=== PATIENT | female | born 1990 ===

== ENCOUNTER 2020-01-10 12:19 | Outpatient (REF) | payer OTHER, SELFPAY | END 2020-01-10 12:20 | disposition home or self-care (01) | LOC: HO.LAB 12:19 | PROVIDERS: Visit Provider Internal Medicine | DX: Z20.828 Contact with and (suspected) exposure to other viral communicable diseases (principal) | CPT/HCPCS: 36415; 87635 ==

== ENCOUNTER 2020-01-21 16:40 | Emergency (ER) | payer OTHER, SELFPAY ==
[2020-01-21 17:49] VITALS: BP 134/71; PULSE 91; RESP 16; TEMP 37.1; O2SAT 100; BMI 24.2
--- NOTE | 2020-01-21 18:44 | ED.EAR ---
HPI - Ear Problem General Chief complaint: Ear Problems <LIGIA Lucio Last Filed: 01/21/20 18:49> Stated complaint: EARACHE <LIGIA Lucio Last Filed: 01/21/20 18:49> Time Seen by Provider: 01/21/20 18:44 <LIGIA Lucio Last Filed: 01/21/20 18:49> Source: patient <LIGIA Lucio Last Filed: 01/21/20 18:49> Mode of arrival: ambulatory <LIGIA Lucio Last Filed: 01/21/20 18:49> History of Present Illness HPI Narrative: 30-year-old female with no significant past medical history complaining of bilateral ear pain worse on the right x3 weeks. Denies fever, chills, hearing loss, drainage, sore throat, headache, cough <LIGIA Lucio Last Filed: 01/21/20 18:49> MD Complaint: ear pain <LIGIA Lucio Last Filed: 01/21/20 18:49> Location: bilateral <LIGIA Lucio Last Filed: 01/21/20 18:49> Related Data Home medications: Previous Rx's Medication Instructions Recorded amoxicillin-pot clavulanate 1 tab PO Q12H 7 Days #14 tab 01/21/20 [Augmentin] <LIGIA Lucio Last Filed: 01/21/20 18:49> Allergies/adverse reactions: Allergies Allergy/AdvReac Type Severity Reaction Status Date / Time No Known Allergies Allergy Verified 01/20/20 14:42 [No Known Allergies*] <LIGIA Lucio Last Filed: 01/21/20 18:49> Review of Systems Review of Systems: Constitutional: No Weight loss, No Fever, No Chills ENT/Mouth: + Ear Pain, No Nasal Congestion, No Sinus Pain, No Hoarseness, No sore throat, No Rhinorrhea, No Swallowing Difficulty Respiratory: No Cough Skin: No Skin Lesions, No rash <LIGIA Lucio Last Filed: 01/21/20 18:49> Yes all other systems are reviewed and are negative <LIGIA Lucio Last Filed: 01/21/20 18:49> PMFSH Past Medical History Attestation statement: The following information was validated with the patient. <LIGIA Lucio - Last Filed: 01/21/20 18:49> Medical History: Medical History (Updated 01/21/20 @ 18:45 by LIGIA Lucio) No known health problems <LIGIA Lucio - Last Filed: 01/21/20 18:49> Surgical History: Surgical History (Updated 01/20/20 @ 14:42 by ENOC Carter) No pertinent past surgical history <LIGIA Lucio - Last Filed: 01/21/20 18:49> Family History Family History: Family History (Updated 01/20/20 @ 14:43 by ENOC Carter) Father CVD (cardiovascular disease) Hypertension Mother Alive and well <LIGIA Lucio - Last Filed: 01/21/20 18:49> Social History Social History: Social History Alcohol intake: never Smoked in Last 30 Days: No Use of substances other than those prescribed or required for medical reasons: No Advance Directives: No Advance Directives Information Provided: Yes <LIGIA Lucio - Last Filed: 01/21/20 18:49> Physical Exam Vital Signs: Vital Signs: Vital Signs Temp Pulse Resp BP Pulse Ox 01/21/20 17:49 98.7 F 91 16 134/71 100 Body Mass Index 24.2 <LIGIA Lucio - Last Filed: 01/21/20 18:49> Vital Signs: Vital Signs Temp Pulse Resp BP Pulse Ox 01/21/20 17:49 98.7 F 91 16 134/71 100 Body Mass Index 24.2 <Errol Bui MD - Last Filed: 01/21/20 19:15> Const: General: cooperative and healthy appearing <LIGIA Lucio - Last Filed: 01/21/20 18:49> Orientation/consciousness: patient oriented x3 <LIGIA Lucio - Last Filed: 01/21/20 18:49> Limitations: no limitations <LIGIA Lucio - Last Filed: 01/21/20 18:49> HENMT: Head: Yes normal to inspection <LIGIA Lucio - Last Filed: 01/21/20 18:49> Ears: hearing grossly normal bilaterally, TM normal on the left, mastoids normal, no periauricular adenopathy, TM abnormal ( right) bulging and with fluid behind the TM and unable to visualize TM ( cleared with syringe) on the right <LIGIA Lucio - Last Filed: 01/21/20 18:49> General nose exam: Normal external nose present <LIGIA Lucio - Last Filed: 01/21/20 18:49> Face and sinus: Yes normal facial exam <LIGIA Lucio - Last Filed: 01/21/20 18:49> Mouth: Normal oral and palatal mucosa present <LIGIA Lucio - Last Filed: 01/21/20 18:49> Throat: Yes uvula midline <LIGIA Lucio - Last Filed: 01/21/20 18:49> Eyes: General: appearance normal, both eyes and all related structures <LIGIA Lucio - Last Filed: 01/21/20 18:49> EOM: EOMs intact bilaterally <LIGIA Lucio - Last Filed: 01/21/20 18:49> Neck: Neck: Yes normal visual inspection <LIGIA Lucio - Last Filed: 01/21/20 18:49> Skin: Rashes: no rashes <LIGIA Lucio - Last Filed: 01/21/20 18:49> Wounds: no wounds <LIGIA Lucio - Last Filed: 01/21/20 18:49> Neuro: General: patient oriented x3 <LIGIA Lucio - Last Filed: 01/21/20 18:49> Gait exam (Neuro): Normal gait present <LIGIA Lucio - Last Filed: 01/21/20 18:49> Extrem: General: Yes normal to inspection <LIGIA Lucio - Last Filed: 01/21/20 18:49> Course Course Course Narrative: I have reviewed the chart <Errol Bui MD - Last Filed: 01/21/20 19:15> MDM - Ear MDM Narrative Medical decision making narrative: right TM with cerumen impaction, cleared with water gun syringe. Right TM with fluid behind membrane/bulging consistent with otitis media <LIGIA Lucio - Last Filed: 01/21/20 18:49> Differential Diagnosis Differential diagnosis: Likely otitis media and cerumen impaction <LIGIA Lucio Last Filed: 01/21/20 18:49> Discharge Plan Discharge Clinical Impression: Otitis media <LIGIA Lucio Last Filed: 01/21/20 18:49> Patient Disposition: Home, Self-Care <LIGIA Lucio Last Filed: 01/21/20 18:49> Instructions: Ear Infection (ED) <LIGIA Lucio Last Filed: 01/21/20 18:49> Additional Instructions: you have an inner ear infection Augmentin is an antibiotic, take as prescribed Follow-up with her primary care doctor Take Tylenol and Motrin at home for pain If pain persists or worsens, you have fever, hearing loss, or drainage from the ear return to the ED <LIGIA Lucio Last Filed: 01/21/20 18:49> Prescriptions: New amoxicillin-pot clavulanate [Augmentin] 875-125 mg tablet 1 tab PO Q12H 7 Days Qty: 14 RF: 0 <LIGIA Lucio Last Filed: 01/21/20 18:49> Referrals: ED Physician,Generic [Physician] - 2 days ( your primary care doctor) <LIGIA Lucio Last Filed: 01/21/20 18:49> Interventions: ED Discharge Assessment Last Done: 01/21/20 19:05 <LIGIA Lucio Last Filed: 01/21/20 18:49> Discharge Date/Time: 01/21/20 18:55 <LIGIA Lucio Last Filed: 01/21/20 18:49>
== END 2020-01-21 18:55 | disposition home or self-care (01) ==
PROVIDERS: Emergency Provider Emergency Medicine; PCP Internal Medicine
DX: H66.93 Otitis media, unspecified, bilateral (principal); H61.23 Impacted cerumen, bilateral; H92.03 Otalgia, bilateral
CPT/HCPCS: 99283; 99284

== ENCOUNTER 2020-02-21 16:22 | Outpatient (REF) | payer OTHER, SELFPAY | END 2020-02-21 16:23 | disposition home or self-care (01) | LOC: HO.LAB 16:22 | PROVIDERS: Visit Provider Internal Medicine | DX: Z20.828 Contact with and (suspected) exposure to other viral communicable diseases (principal) | CPT/HCPCS: C9803; U0003 ==

== ENCOUNTER 2020-04-19 08:47 | Emergency (ER) | payer OTHER, SELFPAY ==
[2020-04-19 08:58] VITALS: BP 131/95; PULSE 117; RESP 18; TEMP 36.9; O2SAT 100; BMI 24.2
--- NOTE | 2020-04-19 09:11 | ED_ITS ---
HPI - Chest Pain General Chief Complaint: Chest Pain <Arthur Pittman NP - Last Filed: 04/19/20 11:03> Stated Complaint: upper back pain <Arthur Pittman NP - Last Filed: 04/19/20 11:03> Time Seen by Provider: 04/19/20 09:11 <Arthur Pittman NP - Last Filed: 04/19/20 11:03> Source: patient <Arthur Pittman NP - Last Filed: 04/19/20 11:03> Mode of arrival: ambulatory <Arthur Pittman NP - Last Filed: 04/19/20 11:03> Limitations: no limitations <ASHLEY Manley Last Filed: 04/19/20 11:03> History of Present Illness HPI narrative: This is otherwise healthy 30-year-old female who is a A0 youngest child is 4 years old otherwise she denies any significant past medical history and not on control who presents today with complaint of 4 days of pain on the right-sided chest and pain in the right-sided upper back for 4 days as well worsen with movement and palpation. She denies any cough or fever. Does also report mild sore throat going on for the past 6 days. No swelling or difficulty swallowing. No sick contacts. <Arthur Pittman NP - Last Filed: 04/19/20 11:03> Related Data Home Medications: Previous Rx's Medication Instructions Recorded amoxicillin-pot clavulanate 1 tab PO Q12H 7 Days #14 tab 01/21/20 [Augmentin] cyclobenzaprine 5 mg PO TID PRN #14 tab 04/19/20 ibuprofen 800 mg PO Q8H PRN #20 tab 04/19/20 <Arthur Pittman NP - Last Filed: 04/19/20 11:03> Allergies/Adverse Reactions: Allergies Allergy/AdvReac Type Severity Reaction Status Date / Time No Known Allergies Allergy Verified 01/20/20 14:42 [No Known Allergies*] <ASHLEY Manley Last Filed: 04/19/20 11:03> Review of Systems Review of Systems: Constitutional: No Weight loss, No Fever, No Chills, No Night Sweats, No Fatigue, No Malaise ENT/Mouth: No Hearing loss, No Ear Pain, No Nasal Congestion, No Sinus Pain, No Hoarseness, + sore throat, No Rhinorrhea, No Swallowing Difficulty Eyes: No Eye Pain, No Swelling, No Redness, No Foreign Body, No Discharge, No Vision Changes Cardiovascular: + Chest Pain, No SOB, No Dyspnea on Exertion, No Orthopnea, No Edema, No Palpitations Respiratory: No Cough, No Sputum, No Wheezing, No Smoke Exposure, No Dyspnea Gastrointestinal: No Nausea, No Vomiting, No Diarrhea, No Constipation, No abdom inal Pain, No Hematochezia, No Melena Genitourinary: no irregular bleeding, No Dysuria, No Urinary Frequency, No Hematuria, No Urinary Incontinence, No Urgency, No Flank Pain, No Urinary Flow Changes, No Hesitancy Musculoskeletal: No joint pain, No Myalgias, No Joint Swelling Skin: No Skin Lesions, No rash Neuro: No Weakness, No Numbness, No Paresthesias, No Loss of Consciousness, No Dizziness, No Headache Psych: No Social Issues Heme/Lymph: No Bruising, No Bleeding,No Lymphadenopathy Endocrine: No Polyuria, No Polydipsia, No Temperature Intolerance <Arthur Pittman NP - Last Filed: 04/19/20 11:03> Yes all other systems are reviewed and are negative <Arthur Pittman NP - Last Filed: 04/19/20 11:03> [facility] Past Medical History Medical History: Medical History (Updated 04/20/20 @ 00:01 by Kalin Ambrocio) No known health problems Physical exam <Arthur Pittman NP - Last Filed: 04/19/20 11:03> Surgical History: Surgical History No pertinent past surgical history <Arthur Pittman NP - Last Filed: 04/19/20 11:03> Family History Family History: Family History (Updated 01/20/20 @ 14:43 by Deborah Valenzuela Kim) Father CVD (cardiovascular disease) Hypertension Mother Alive and well <Arthur Pittman NP - Last Filed: 04/19/20 11:03> Social History Social History: Social History Alcohol intake: never Smoked in Last 30 Days: No Use of substances other than those prescribed or required for medical reasons: No Advance Directives: No Advance Directives Information Provided: Yes <Arthur Pittman NP - Last Filed: 04/19/20 11:03> Physical Exam Vital Signs: Vital Signs: Last Vital Signs Temp 98.4 F 04/19/20 08:58 Pulse 117 H 04/19/20 08:58 Resp 18 04/19/20 08:58 BP 131/95 H 04/19/20 08:58 Pulse Ox 100 04/19/20 08:58 Body Mass Index 24.2 Reviewed <Arthuraretha Pittman NP - Last Filed: 04/19/20 11:03> Vital Signs: Last Vital Signs Temp 98.4 F 04/19/20 08:58 Pulse 117 H 04/19/20 08:58 Resp 18 04/19/20 08:58 BP 131/95 H 04/19/20 08:58 Pulse Ox 100 04/19/20 08:58 Body Mass Index 24.2 <Errol Bui MD - Last Filed: 04/23/20 14:37> Const: General: cooperative and healthy appearing; No acute distress or intoxicated appearing <Arthuraretha Pittman NP - Last Filed: 04/19/20 11:03> Nutritional Appearance: average body habitus <Arthuraretha Pittman NP - Last Filed: 04/19/20 11:03> Orientation/consciousness: patient oriented x3 <Arthur Pittman NP - Last Filed: 04/19/20 11:03> HENMT: Head: Yes normal to inspection <Arthuraretha Pittman NP - Last Filed: 04/19/20 11:03> Ears: hearing grossly normal bilaterally <[facility] ASHLEY Pittman - Last Filed: 04/19/20 11:03> Eyes: General: appearance normal, both eyes and all related structures <Arthuraretha Pittman NP - Last Filed: 04/19/20 11:03> Visual Simmons: normal visual simmons by confrontation <[facility] ASHLEY Pittman - Last Filed: 04/19/20 11:03> Neck: Neck: Yes normal visual inspection, No positive Brudzinski's sign, No positive Kernig's sign and No tender <Arthuraretha Pittman NP - Last Filed: 04/19/20 11:03> Thyroid: Thyroid normal <[facility] ASHLEY Pittman - Last Filed: 04/19/20 11:03> Chest: Chest palpation & inspection: normal inspection of the chest, no crepitus and tenderness costochondral junction <[facility] Zain - Last Filed: 04/19/20 11:03> Resp: Effort & Inspection: normal respiratory effort <[facility] Zain - Last Filed: 04/19/20 11:03> Auscultation: clear to auscultation bilaterally <[facility] Pittman - Last Filed: 04/19/20 11:03> Cardio: Jugular venous distension: no JVD <[facility] Pittman - Last Filed: 04/19/20 11:03> Rate: regular rate <[facility] Pittman - Last Filed: 04/19/20 11:03> Rhythm: regular rhythm [facility] - Last Filed: 04/19/20 11:03> Heart sounds: S1 normal heart sound present and S2 normal heart sound present <[facility] Pittman - Last Filed: 04/19/20 11:03> GI: Inspection: Yes normal to inspection <[facility] Pittman - Last Filed: 04/19/20 11:03> Percussion: Yes normal to percussion <[facility] Pittman - Last Filed: 04/19/20 11:03> Auscultation: normal bowel sounds <[facility] Pittman - Last Filed: 04/19/20 11:03> : General: Yes no CVA tenderness <[facility] Pittman - Last Filed: 04/19/20 11:03> Back/Spine/Pelvis: Back: no CVA tenderness <[facility] Pittman - Last Filed: 04/19/20 11:03> Skin: General skin exam: no rashes or lesions noted <[facility] Pittman - Last Filed: 04/19/20 11:03> Neuro: General: patient oriented x3 <[facility] Pittman, - Last Filed: 04/19/20 11:03> Extrem: General: Yes normal to inspection <[facility] Pittman - Last Filed: 04/19/20 11:03> Course Course Course Narrative: Labs overall stable. D-dimer negative. Chemistries without significant abnormalities. High sensitivity troponin negative. COVID/strep negative. AP consistent with pain musculoskeletal in etiology and mild viral pharyngitis. Will be discharged home with supportive care, return follow-up instructions provided. <Arthur Pittman NP - Last Filed: 04/19/20 11:03> I have reviewed the chart <Errol Bui MD - Last Filed: 04/23/20 14:37> MDM - Chest Pain Differential Diagnosis Differential diagnosis: Likely atypical chest pain, costochondritis and chest pain; Unlikely fracture of rib, pneumothorax, stable angina, unstable angina pectoris, st elevation myocardial infarction and biliary colic <Arthur Pittman NP - Last Filed: 0 04/19/20 11:03> Differential diagnosis: Also considered pulmonary embolism, pharyngitis <Arthur Pittman NP - Last Filed: 04/19/20 11:03> Medical Records Data Attestation: I reviewed the patient's medical records. <Arthur Pittman NP - Last Filed: 04/19/20 11:03> Lab Data Attestation: I reviewed the patient's lab results. <Arthur Pittman NP - Last Filed: 04/19/20 11:03> Result diagrams: : 04/19/20 09:15 04/19/20 09:15 <Arthur Pittman NP - Last Filed: 04/19/20 11:03> Labs: Lab Results 04/19/20 04/19/20 04/19/20 Range/Units 09:15 09:15 09:15 WBC 6.6 (4.8-10.8) X10*3/uL RBC 4.80 (4.20-5.50) X10*6/uL Hgb 12.6 (12.0-16.0) g/dl Hct 39.1 (37-47) % MCV 81.5 (80-98) fL MCH 26.3 L (27.0-33.0) pg MCHC 32.2 (31.0-35.0) g/dl RDW 13.9 (11.0-16.0) % Plt Count 299 (160-400) X10*3/uL MPV 11.9 (9.4-12.3) fL Immature Gran % (Auto) 0.3 (0.0-0.4) % Neut % (Auto) 66.2 (45-73) % Lymph % (Auto) 25.8 (20-40) % [place] % (Auto) 6.5 (2-11) % Eos % (Auto) 0.9 (0-4) % Baso % (Auto) 0.3 (0-2) % Lymph # (Auto) 1.7 (1.2-4.9) X10*3/uL [place] # (Auto) 0.4 (0.1-1.2) X10*3/uL Eos # (Auto) 0.1 (0.0-0.4) X10*3/uL Baso # (Auto) 0.0 (0.0-0.2) X10*3/uL Abs Immat Gran (auto) 0.02 (0.00-0.03) X10*3/uL Absolute Neuts (auto) 4.4 (2.0-8.3) X10*3/uL Absolute Nucleated RBC 0.000 (0.0-0.012) X10*3/uL Nucleated RBC % (auto) 0.0 (0.0-0.2) /100WBC PT (10.8-13.0) SEC INR (0.9-1.1) APTT (24.1-38.0) SEC D-Dimer NG/ML Sodium 137 (135-145) mmol/L Potassium 4.2 (3.3-5.1) mmol/l Chloride 102 (96-108) mmol/L Carbon Dioxide 25 (22-29) mmol/L Anion Gap 14 (12-20) BUN 11 (9-16) mg/dL Creatinine 0.64 (0.5-1.4) mg/dL Estim Creat Clear Calc 95.9 Estimated GFR > 60 Random Glucose 93 (60-115) mg/dL Calcium 9.2 (8.4-10.2) mg/dL Total Bilirubin 0.5 (0.0-1.0) mg/dL AST 16 (5-31) U/L ALT 15 (0-31) U/L Alkaline Phosphatase 83 (39-117) U/L Troponin I High Sens (<3.5-17.0) ng/L Total Protein 8.0 (6.5-8.0) g/dL Albumin 4.5 (3.5-5.0) g/dL COVID-19 ([facility]) Negative (Negative) COVID-19 Clin Com See Note 04/19/20 04/19/20 Range/Units 09:16 09:16 WBC (4.8-10.8) X10*3/uL RBC (4.20-5.50) X10*6/uL Hgb (12.0-16.0) g/dl Hct (37-47) % MCV (80-98) fL MCH (27.0-33.0) pg MCHC (31.0-35.0) g/dl RDW (11.0-16.0) % Plt Count (160-400) X10*3/uL MPV (9.4-12.3) fL Immature Gran % (Auto) (0.0-0.4) % Neut % (Auto) (45-73) % Lymph % (Auto) (20-40) % [place] % (Auto) (2-11) % Eos % (Auto) (0-4) % Baso % (Auto) (0-2) % Lymph # (Auto) (1.2-4.9) X10*3/uL [place] # (Auto) (0.1-1.2) X10*3/uL Eos # (Auto) (0.0-0.4) X10*3/uL Baso # (Auto) (0.0-0.2) X10*3/uL Abs Immat Gran (auto) (0.00-0.03) X10*3/uL Absolute Neuts (auto) (2.0-8.3) X10*3/uL Absolute Nucleated RBC (0.0-0.012) X10*3/uL Nucleated RBC % (auto) (0.0-0.2) /100WBC PT 12.7 (10.8-13.0) SEC INR 1.1 (0.9-1.1) APTT 37.2 (24.1-38.0) SEC D-Dimer < 200 NG/ML Sodium (135-145) mmol/L Potassium (3.3-5.1) mmol/l Chloride (96-108) mmol/L Carbon Dioxide (22-29) mmol/L Anion Gap (12-20) BUN (9-16) mg/dL Creatinine (0.5-1.4) mg/dL Estim Creat Clear Calc Estimated GFR Random Glucose (60-115) mg/dL Calcium (8.4-10.2) mg/dL Total Bilirubin (0.0-1.0) mg/dL AST (5-31) U/L ALT (0-31) U/L Alkaline Phosphatase (39-117) U/L Troponin I High Sens < 3.5 (<3.5-17.0) ng/L Total Protein (6.5-8.0) g/dL Albumin (3.5-5.0) g/dL COVID-19 ([facility]) (Negative) COVID-19 Clin Com <Arthur Pittman NP - Last Filed: 04/19/20 11:03> Lab Results 04/19/20 04/19/20 04/19/20 Range/Units 09:15 09:15 09:15 WBC 6.6 (4.8-10.8) X10*3/uL RBC 4.80 (4.20-5.50) X10*6/uL Hgb 12.6 (12.0-16.0) g/dl Hct 39.1 (37-47) % MCV 81.5 (80-98) fL MCH 26.3 L (27.0-33.0) pg MCHC 32.2 (31.0-35.0) g/dl RDW 13.9 (11.0-16.0) % Plt Count 299 (160-400) X10*3/uL MPV 11.9 (9.4-12.3) fL Immature Gran % (Auto) 0.3 (0.0-0.4) % Neut % (Auto) 66.2 (45-73) % Lymph % (Auto) 25.8 (20-40) % [place] % (Auto) 6.5 (2-11) % Eos % (Auto) 0.9 (0-4) % Baso % (Auto) 0.3 (0-2) % Lymph # (Auto) 1.7 (1.2-4.9) X10*3/uL [place] # (Auto) 0.4 (0.1-1.2) X10*3/uL Eos # (Auto) 0.1 (0.0-0.4) X10*3/uL Baso # (Auto) 0.0 (0.0-0.2) X10*3/uL Abs Immat Gran (auto) 0.02 (0.00-0.03) X10*3/uL Absolute Neuts (auto) 4.4 (2.0-8.3) X10*3/uL Absolute Nucleated RBC 0.000 (0.0-0.012) X10*3/uL Nucleated RBC % (auto) 0.0 (0.0-0.2) /100WBC PT (10.8-13.0) SEC INR (0.9-1.1) APTT (24.1-38.0) SEC D-Dimer NG/ML Sodium 137 (135-145) mmol/L Potassium 4.2 (3.3-5.1) mmol/l Chloride 102 (96-108) mmol/L Carbon Dioxide 25 (22-29) mmol/L Anion Gap 14 (12-20) BUN 11 (9-16) mg/dL Creatinine 0.64 (0.5-1.4) mg/dL Estim Creat Clear Calc 95.9 Estimated GFR > 60 Random Glucose 93 (60-115) mg/dL Calcium 9.2 (8.4-10.2) mg/dL Total Bilirubin 0.5 (0.0-1.0) mg/dL AST 16 (5-31) U/L ALT 15 (0-31) U/L Alkaline Phosphatase 83 (39-117) U/L Troponin I High Sens (<3.5-17.0) ng/L Total Protein 8.0 (6.5-8.0) g/dL Albumin 4.5 (3.5-5.0) g/dL COVID-19 ([facility]) Negative (Negative) COVID-19 Clin Com See Note 04/19/20 04/19/20 Range/Units 09:16 09:16 WBC (4.8-10.8) X10*3/uL RBC (4.20-5.50) X10*6/uL Hgb (12.0-16.0) g/dl Hct (37-47) % MCV (80-98) fL MCH (27.0-33.0) pg MCHC (31.0-35.0) g/dl RDW (11.0-16.0) % Plt Count (160-400) X10*3/uL MPV (9.4-12.3) fL Immature Gran % (Auto) (0.0-0.4) % Neut % (Auto) (45-73) % Lymph % (Auto) (20-40) % [place] % (Auto) (2-11) % Eos % (Auto) (0-4) % Baso % (Auto) (0-2) % Lymph # (Auto) (1.2-4.9) X10*3/uL [place] # (Auto) (0.1-1.2) X10*3/uL Eos # (Auto) (0.0-0.4) X10*3/uL Baso # (Auto) (0.0-0.2) X10*3/uL Abs Immat Gran (auto) (0.00-0.03) X10*3/uL Absolute Neuts (auto) (2.0-8.3) X10*3/uL Absolute Nucleated RBC (0.0-0.012) X10*3/uL Nucleated RBC % (auto) (0.0-0.2) /100WBC PT 12.7 (10.8-13.0) SEC INR 1.1 (0.9-1.1) APTT 37.2 (24.1-38.0) SEC D-Dimer < 200 NG/ML Sodium (135-145) mmol/L Potassium (3.3-5.1) mmol/l Chloride (96-108) mmol/L Carbon Dioxide (22-29) mmol/L Anion Gap (12-20) BUN (9-16) mg/dL Creatinine (0.5-1.4) mg/dL Estim Creat Clear Calc Estimated GFR Random Glucose (60-115) mg/dL Calcium (8.4-10.2) mg/dL Total Bilirubin (0.0-1.0) mg/dL AST (5-31) U/L ALT (0-31) U/L Alkaline Phosphatase (39-117) U/L Troponin I High Sens < 3.5 (<3.5-17.0) ng/L Total Protein (6.5-8.0) g/dL Albumin (3.5-5.0) g/dL COVID-19 ([facility]) (Negative) COVID-19 Clin Com <Errol Bui MD - Last Filed: 04/23/20 14:37> Imaging Data Chest x-ray: Radiologist's impression: [id number] [place] [id number] XRay Report Signed Patient: Jakob Dale#: [id number] : 1990Acct:[id number] Age/Sex: 30 / FADM Date: 04/19/20 Loc: HO.ED Attending Dr: Ordering Physician: Arthur Pittman NP Date of Service: 04/19/20 Procedure(s): XR chest 1V Accession Number(s): [id number] cc: Arthur Pittman NP~ EXAMINATION: XR CHEST CLINICAL INFORMATION: Chest wall pain COMPARISON: August 20, 2017 TECHNIQUE: AP portable view of the chest was obtained. FINDINGS: No significant abnormality is noted involving the heart, lungs, mediastinum, bony thorax or soft tissues. XR/XR chest 1V IMPRESSION: No acute disease. Dictated By:LYNN PEÑALOZA MD Signed By:<Electronically signed by LYNN PEÑALOZA MD in OV>04/19/20 1005 DD/ 0913 TD/TT: [employer] Operator: LIBERTAD <Arthur Pittman NP - Last Filed: 04/19/20 11:03> ECG Data ECG #1: Interpretation: Normal sinus rhythm Rate 100 No ectopy No acute ST segment changes No previous ECGs available <Arthur Pittman NP - Last Filed: 04/19/20 11:03> Discharge Plan Discharge Clinical Impression: Costalchondritis, Acute viral pharyngitis <Arthur Pittman NP - Last Filed: 04/19/20 11:03> Patient Disposition: Home, Self-Care <Arthur Pittman NP - Last Filed: 04/19/20 11:03> Instructions: Pharyngitis (ED), Costochondritis (ED) <Arthur Pittman NP - Last Filed: 04/19/20 11:03> Additional Instructions: Your chest x-ray was negative Blood work was all within normal limits Your COVID test was negative Strep test was negative Warm compresses Gentle stretching Saltwater gargles Anti-inflammatory medication prescribed Muscle relaxants as prescribed No drinking alcohol or or driving while taking muscle relaxants Follow-up with her primary doctor as discussed Return if any concerns or worsening symptoms Thank you <Arthur Pittman NP - Last Filed: 04/19/20 11:03> Prescriptions: New ibuprofen 800 mg tablet 800 mg PO Q8H PRN (Reason: pain) Qty: 20 RF: 0 cyclobenzaprine 5 mg tablet 5 mg PO TID PRN (Reason: muscle spasm) Qty: 14 RF: 0 No Action amoxicillin-pot clavulanate [Augmentin] 875-125 mg tablet 1 tab PO Q12H 7 Days Qty: 14 RF: 0 <Arthur Pittman NP - Last Filed: 04/19/20 11:03> Referrals: Physician,None [Primary Care Provider] - 1 week <Arthur Pittman NP - Last Filed: 04/19/20 11:03> Interventions: ED Discharge Assessment Last Done: 04/19/20 11:14 <Arthur Pittman NP - Last Filed: 04/19/20 11:03> Discharge Date/Time: 04/19/20 11:16 <Arthur Pittman NP - Last Filed: 04/19/20 11:03>
--- NOTE | 2020-04-19 09:13 | ECG_ITS ---
Test Reason : CHEST DISCMFORT Blood Pressure : / mmHG Vent. Rate : 100 BPM Atrial Rate : 100 BPM P-R Int : 166 ms QRS Dur : 072 ms QT Int : 336 ms P-R-T Axes : 063 050 041 degrees QTc Int : 433 ms Normal sinus rhythm Normal ECG No previous ECGs available Referred By: Arthur Pittman Electronically Signed By:MARIALUISA SNELL MD
[2020-04-19 09:26] LABS: MANUAL DIFF FLAG NO
[2020-04-19] MEDS: 0.9 % Sodium Chloride 1,000 ML 999 ML IV (09:26)
[2020-04-19 09:29] LABS: Basophils Percent Auto 0.3 % (0-2); Eosinophils Absolute Auto 0.1 X10*3/uL (0.0-0.4); Eosinophils Percent Auto 0.9 % (0-4); Hematocrit 39.1 % (37-47); Hemoglobin 12.6 g/dl (12.0-16.0); Imm Gran Abs Auto 0.02 X10*3/uL (0.00-0.03); Imm Gran Pct Auto 0.3 % (0.0-0.4); Lymphocytes Absolute Auto 1.7 X10*3/uL (1.2-4.9); Lymphocytes Percent Auto 25.8 % (20-40); Mean Corpuscular HGB Conc 32.2 g/dl (31.0-35.0); Mean Corpuscular Hemoglobin 26.3 pg (27.0-33.0); Mean Corpuscular Volume 81.5 fL (80-98); Mean Platelet Volume 11.9 fL (9.4-12.3); Monocytes Absolute Auto 0.4 X10*3/uL (0.1-1.2); Monocytes Percent Auto 6.5 % (2-11); Neutrophils Absolute Auto 4.4 X10*3/uL (2.0-8.3); Neutrophils Percent Auto 66.2 % (45-73); Platelet Count 299 X10*3/uL (160-400); Red Cell Distribution Width 13.9 % (11.0-16.0); White Blood Count 6.6 X10*3/uL (4.8-10.8)
[2020-04-19 09:47] LABS: INTERNATIONAL NORM RATIO 1.1 (0.9-1.1); Prothrombin Time 12.7 SEC (10.8-13.0)
[2020-04-19 09:49] LABS: Partial Thromboplastin Time 37.2 SEC (24.1-38.0)
[2020-04-19 09:50] LABS: Alanine Aminotransferase 15 U/L (0-31); Albumin Level 4.5 g/dL (3.5-5.0); Alkaline Phosphatase 83 U/L (39-117); Anion Gap 14 (12-20); Aspartate Amino Transferase 16 U/L (5-31); Bilirubin Total 0.5 mg/dL (0.0-1.0); Blood Urea Nitrogen 11 mg/dL (9-16); Calcium 9.2 mg/dL (8.4-10.2); Carbon Dioxide 25 mmol/L (22-29); Chloride 102 mmol/L (96-108); Creatinine Clr Calc Pharmacy 95.9; Estimated Glomerular Filt Rate > 60; Glucose Random 93 mg/dL (60-115); Potassium 4.2 mmol/l (3.3-5.1); Sodium 137 mmol/L (135-145)
[2020-04-19 09:51] LABS: D Dimer < 200 NG/ML
[2020-04-19 09:54] LABS: Troponin-I High Sensitivity < 3.5 ng/L (<3.5-17.0)
[2020-04-19 10:03] LABS: COVID-19 Test Negative (Negative)
--- NOTE | 2020-04-19 11:13 | PC.NURSE ---
CLEARED FOR DC AFTER REEVAL BY PROVIDER
== END 2020-04-19 11:16 | disposition home or self-care (01) ==
PROVIDERS: Nurse Practitioner Primary Care; Emergency Provider Emergency Medicine
DX: M94.0 Chondrocostal junction syndrome [Tietze] (principal); J02.9 Acute pharyngitis, unspecified; Z20.822 Contact with and (suspected) exposure to COVID-19
CPT/HCPCS: 36415; 71045; 80053; 84484; 85025; 85379; 85610; 85730; 87071; 87147; 87635; 87880; 93005; 96360; 99284

== ENCOUNTER 2020-05-01 12:44 | Outpatient (REF) | payer OTHER, SELFPAY ==
[2020-05-02 14:17] LABS: C. trachomatis RNA TMA NOT DETECTED (NOT DETECTED); N. gonorrhoeae RNA TMA NOT DETECTED (NOT DETECTED)
== END 2020-05-01 12:45 | disposition home or self-care (01) ==
LOC: HO.LAB 12:44
PROVIDERS: Visit Provider Advanced Practice Midwife
DX: Z01.419 Encounter for gynecological examination (general) (routine) without abnormal findings (principal)
CPT/HCPCS: 36415; 87491; 87591

== ENCOUNTER 2020-07-25 14:46 | Outpatient (REF) | payer OTHER, SELFPAY ==
--- NOTE | ~2020-07-25 | XR_ITS ---
EXAMINATION: XR KNEE, LEFT CLINICAL INFORMATION: Left knee pain. COMPARISON: None TECHNIQUE: AP, lateral, and sunrise views of the left knee. FINDINGS: Bones and soft tissues are normal. No fracture or joint effusion. Alignment is anatomic. Joint spaces are well maintained. No abnormal soft tissue calcification. XR/XR knee LT 3V IMPRESSION: Unremarkable examination.
== END 2020-07-25 14:47 | disposition home or self-care (01) ==
LOC: HO.XRAY 14:46
PROVIDERS: PCP Internal Medicine; Visit Provider Student in an Organized Health Care Education/Training Program
DX: M25.562 Pain in left knee (principal); R68.84 Jaw pain; H04.129 Dry eye syndrome of unspecified lacrimal gland; R68.2 Dry mouth, unspecified; G89.29 Other chronic pain; Z79.899 Other long term (current) drug therapy
CPT/HCPCS: 73562; 99212

== ENCOUNTER 2020-11-16 13:59 | Outpatient (REF) | payer OTHER, SELFPAY | END 2020-11-16 14:00 | disposition home or self-care (01) | LOC: HO.HMGCLDS 13:59 | PROVIDERS: PCP Internal Medicine; Visit Provider Internal Medicine | DX: Z20.822 Contact with and (suspected) exposure to COVID-19 (principal) | CPT/HCPCS: C9803; U0003; U0005 ==

== ENCOUNTER 2021-08-03 14:42 | Outpatient (REF) | payer OTHER, SELFPAY ==
[2021-08-03 18:32] LABS: CT PCR NOT DETECTED (Not Detect.); NG PCR NOT DETECTED (Not Detect.)
[2021-08-09 11:56] LABS: HPV mRNA E6/E7 rflx Not Detected (Not Detected)
== END 2021-08-03 14:43 | disposition home or self-care (01) ==
LOC: HO.LAB 14:42
PROVIDERS: PCP Internal Medicine; Visit Provider Advanced Practice Midwife
DX: Z01.411 Encounter for gynecological examination (general) (routine) with abnormal findings (principal); Z11.51 Encounter for screening for human papillomavirus (HPV); Z20.2 Contact with and (suspected) exposure to infections with a predominantly sexual mode of transmission; N92.0 Excessive and frequent menstruation with regular cycle; N92.6 Irregular menstruation, unspecified
CPT/HCPCS: 87491; 87591; 87624; 88142

== ENCOUNTER 2021-08-27 13:23 | Outpatient (REF) | payer OTHER, SELFPAY ==
--- NOTE | ~2021-08-27 | US_ITS ---
EXAMINATION: US PELVIS CLINICAL INFORMATION: Irregular menses and hirsutism; the last menstrual period is uncertain. COMPARISON: None TECHNIQUE: Ultrasound of the pelvis is performed using both transabdominal and transvaginal transducers along with Doppler. Transvaginal imaging is performed due to inadequate visualization transabdominally. FINDINGS: Uterus: The uterus is anteverted and measures 10.4 x 5.1 x 6.0 cm. The double wall endometrial thickness is 1.2 mm. The uterus is smooth in contour and has normal myometrial echogenicity. No visible fibroid. Adnexa: Both ovaries are visualized. There is normal color flow to the adnexa. There is no ovarian torsion. There is no pelvic ascites or fluid collection. Right ovary measures 3.8 x 2.4 x 2.2 cm, for a volume of 10.5 mL.The right ovary contains a 1.3 x 1.1 x 1.3 cm simple cyst. Left ovary measures 3.7 x 1.4 x 2.0 cm, for a volume of 5.4 mL. No adnexal mass is seen. US/US pelvic and transvaginal IMPRESSION: 1. A benign-appearing 1.3 cm simple right ovarian cyst is seen. No ultrasound follow-up is recommended. 2. The examination is otherwise unremarkable.
== END 2021-08-27 13:24 | disposition home or self-care (01) ==
LOC: HO.US 13:23
PROVIDERS: Visit Provider Advanced Practice Midwife
DX: N92.6 Irregular menstruation, unspecified (principal); L68.0 Hirsutism
CPT/HCPCS: 76830; 76856

== ENCOUNTER 2021-11-23 06:40 | Outpatient (REF) | payer OTHER, SELFPAY ==
[2021-11-23 06:46] LABS: MANUAL DIFF FLAG NO
[2021-11-23 07:17] LABS: Basophils Percent Auto 0.6 % (0-2); Eosinophils Absolute Auto 0.1 X10*3/uL (0.0-0.4); Eosinophils Percent Auto 1.5 % (0-4); Hematocrit 37.2 % (37.0-47.0); Hemoglobin 11.9 g/dl (12.0-16.0); Imm Gran Abs Auto 0.02 X10*3/uL (0.00-0.03); Imm Gran Pct Auto 0.3 % (0.0-0.4); Lymphocytes Absolute Auto 2.6 X10*3/uL (1.2-4.9); Lymphocytes Percent Auto 37.8 % (20-40); Mean Corpuscular Hemoglobin 26.4 pg (27.0-33.0); Mean Corpuscular Volume 82.5 fL (80.0-98.0); Mean Platelet Volume 12.1 fL (9.4-12.3); Monocytes Absolute Auto 0.5 X10*3/uL (0.1-1.2); Monocytes Percent Auto 7.9 % (2-11); Neutrophils Absolute Auto 3.5 x10*3/uL (2.0-8.3); Neutrophils Percent Auto 51.9 % (45-73); Platelet Count 265 X10*3/uL (160-400); Red Blood Count 4.51 X10*6/uL (4.20-5.50); Red Cell Distribution Width 13.7 % (11.0-16.0); White Blood Count 6.7 X10*3/uL (4.8-10.8)
[2021-11-23 07:38] LABS: Alanine Aminotransferase 13 U/L (0-31); Albumin Level 4.1 g/dL (3.5-5.0); Alkaline Phosphatase 82 U/L (39-117); Anion Gap 12 (12-20); Aspartate Amino Transferase 14 U/L (5-31); Bilirubin Total 0.3 mg/dL (0.0-1.0); Blood Urea Nitrogen 11 mg/dL (9-16); C Reactive Protein 0.39 mg/dL (< or = 0.50); Calcium 9.3 mg/dL (8.4-10.2); Carbon Dioxide 25 mmol/L (22-29); Chloride 105 mmol/L (96-108); Cholesterol 157 mg/dL; Estimated Glomerular Filt Rate > 60; Glucose Random 90 mg/dL (60-115); HDL Cholesterol 46 mg/dL; LDL Cholesterol Calculated 92 mg/dl; Potassium 4.3 mmol/L (3.3-5.1); Sodium 138 mmol/L (135-145); Total Protein 7.2 g/dL (6.5-8.0); Triglycerides 96 mg/dL
[2021-11-23 07:55] LABS: Erythrocyte Sedimentation Rate 21 MM/HR (0-20)
[2021-11-23 07:59] LABS: Vitamin D 25-OH Total 27.9 ng/mL (>30)
[2021-11-23 09:23] LABS: Appearance Urine Hazy; Color Urine Yellow; Glucose Urine UA Negative (Negative); Leukocyte Esterase Urine Negative (Negative); Nitrite Urine Negative (Negative); Specific Gravity - Urine >= 1.030 (1.005-1.025); Urine Blood Negative (Negative); Urine Ketones Negative (Negative); Urine Protein Negative (Neg-Trace)
[2021-11-23 09:31] LABS: Bacteria Urine Trace (None Seen)
[2021-11-23 09:32] LABS: Hyaline Casts Urine 0-2 /LPF (0-2); RBC Urine 0-2 /HPF (0-2); WBC Urine 0-5 /HPF (0-5)
== END 2021-11-23 06:41 | disposition home or self-care (01) ==
LOC: HO.LAB 06:40
PROVIDERS: PCP Internal Medicine; Visit Provider Internal Medicine
DX: K59.00 Constipation, unspecified (principal); E78.00 Pure hypercholesterolemia, unspecified
CPT/HCPCS: 36415; 80053; 80061; 81001; 82306; 85025; 85652; 86140

== ENCOUNTER 2022-04-25 12:52 | Emergency (ER) | payer OTHER, SELFPAY ==
--- NOTE | ~2022-04-25 | XR_ITS ---
EXAMINATION: XR CHEST CLINICAL INFORMATION: Cough/SOB and chest pain COMPARISON: Chest x-ray 04/19/2020 TECHNIQUE: 2 views of the chest were obtained. FINDINGS: No significant abnormality is noted involving the heart, lungs, mediastinum, bony thorax or soft tissues. XR/XR chest 2V IMPRESSION: Unremarkable chest examination.
[2022-04-25 13:07] VITALS: BP 149/91; PULSE 92; RESP 17; TEMP 36.6; O2SAT 98; BMI 24.2
--- NOTE | 2022-04-25 13:07 | ED.GENADULT ---
HPI - General Adult General Chief complaint: Upper Respiratory Symptoms <LIGIA Rivera - Last Filed: 04/25/22 13:33> Stated complaint: CP, cough, headache <LIGIA Rivera - Last Filed: 04/25/22 13:33> Time Seen by Provider: 04/25/22 15:24 <LIGIA Rivera - Last Filed: 04/25/22 13:33> History of Present Illness HPI narrative: patient complains of main complaint of a cough with intermittent sputum sometimes green or yellow over the last 4 weeks as well as some stuffy nose and nasal congestion worst in the morning and there is some shortness of breath in the mornings but otherwise no other shortness of breath no chest pain no palpitations no fainting no feeling faint no stiff neck no difficulty swallowing no sore throat no chest pain no abdominal pain no nausea vomiting or diarrhea no dysuria and no rash <LIGIA Piedra - Last Filed: 04/27/22 10:24> Related Data Home medications: Home Medications Medication Instructions Recorded Confirmed multivitamin (Daily Multi-Vitamin 1 tab PO DAILY 05/01/20 03/15/22 tablet) Previous Rx's Medication Instructions Recorded doxycycline hyclate 100 mg tablet 100 mg PO BID #20 tabs 03/15/22 azithromycin 250 mg tablet See Rx Instructions PO .COMPLEX #6 04/25/22 (Zithromax Z-Van) tabs <LIGIA Rivera - Last Filed: 04/25/22 13:33> Allergies/adverse reactions: Allergies Allergy/AdvReac Type Severity Reaction Status Date / Time No Known Allergies Allergy Verified 03/15/22 16:01 [No Known Allergies*] <LIGIA Rivera - Last Filed: 04/25/22 13:33> [facility] Past Medical History Source: nursing notes reviewed <LIGIA Piedra - Last Filed: 04/27/22 10:24> Medical History: Medical History Allergic rhinitis Anemia Dry mouth Dryness of eye Heavy menses Jaw clicking Pituitary adenoma Vitamin D deficiency Xerostomia <LIGIA Rivera Last Filed: 04/25/22 13:33> Surgical History: Surgical History No pertinent past surgical history <LIGIA Rivera - Last Filed: 04/25/22 13:33> Family History Family History: Family History Father CVD (cardiovascular disease) Hypertension Mother Alive and well Maternal Aunt Breast cancer <LIGIA Rivera - Last Filed: 04/25/22 13:33> Social History Social History: Social History Housing: House Alcohol intake: never Patient Tobacco Use Status: Never used Tobacco Second Hand Smoke Exposure: No Advance Directives: No Current occupational status: employed Gender identity: Female Cognitive needs: No Hearing needs: No Vision needs: No <LIGIA Rivera Last Filed: 04/25/22 13:33> Physical Exam ED Vital Signs: Vital Signs - 24 hr 04/25/22 13:07 04/25/22 14:12 Temperature 98 F 98.2 F Pulse Rate 92 88 Respiratory Rate 17 16 Blood Pressure 149/91 H 124/84 Pulse Oximetry 98 100 Oxygen Delivery Method Room Air Room Air BMI result Body Mass Index 24.2 <LIGIA Rivera - Last Filed: 04/25/22 13:33> Vital Signs - 24 hr 04/25/22 13:07 04/25/22 14:12 Temperature 98 F 98.2 F Pulse Rate 92 88 Respiratory Rate 17 16 Blood Pressure 149/91 H 124/84 Pulse Oximetry 98 100 Oxygen Delivery Method Room Air Room Air BMI result Body Mass Index 24.2 <LIGIA Piedra - Last Filed: 04/27/22 10:24> General appearance is no acute distress Eyes anicteric no pallor no redness no discharge The nose no sinus tenderness The pharynx is clear without redness swelling or exudate, mucous membranes moist Chest is clear with full symmetric equal breath sounds no adventitious sounds Heart no murmur Abdomen nontender Extremities no edema no calf tenderness or swelling Skin no rashes <LIGIA Piedra - Last Filed: 04/27/22 10:24> Course Course Course Narrative: VIKAS-13:10PM - 32yoF presenting to the ER with complaints of a cough for weeks where it is intermittently associated with chest congestion and she is having pain to her chest midsternal when she is coughing otherwise she does not have chest pain. Reports associated shortness of breath. Denies any fevers, chills, dizziness, dyspnea on exertion orthopnea, leg swelling, recent travel or sick contacts or others with similar symptoms or any other symptoms complaints or concerns. Plan: Labs, EKG, chest x-ray and COVID/RSV/flu swab ordered. Patient will be sent back to the waiting room to evaluated in the ED. <LIGIA Rivera - Last Filed: 04/25/22 13:33> RME-13:10PM - 32yoF presenting to the ER with complaints of a cough for weeks where it is intermittently associated with chest congestion and she is having pain to her chest midsternal when she is coughing otherwise she does not have chest pain. Reports associated shortness of breath. Denies any fevers, chills, dizziness, dyspnea on exertion orthopnea, leg swelling, recent travel or sick contacts or others with similar symptoms or any other symptoms complaints or concerns. Plan: Labs, EKG, chest x-ray and COVID/RSV/flu swab ordered. Patient will be sent back to the waiting room to evaluated in the ED. Patient with a persistent cough for 4 weeks as well as some shortness of breath only in the morning associated with nasal congestion had a negative workup chemistry including a troponin was negative CBC showed hemoglobin hematocrit 11.7/35.8, which is similar to prior Serology was negative for COVID and flu EKG was done initially with incorrect limb leads so was repeated, EKG showed normal sinus rhythm with a rate of 86, NC interval and QRS duration were normal, QT was normal, there were no acute ST or ischemic changes Chest x-ray was normal, no pneumonia Well-appearing patient, breathing easily, ambulating easily, with a persistent cough for 1 month with no other concerning vital signs or exam findings was discharged with prescription for Zithromax for bronchitis <LIGIA Piedra - Last Filed: 04/27/22 10:24> Medical Decision Making Lab Data Result Diagrams: 04/25/22 13:59 04/25/22 13:59 <LIGIA Rivera - Last Filed: 04/25/22 13:33> Labs: Lab Results 01/19/23 01/19/23 01/19/23 Range/Units 13:59 13:59 13:59 WBC 7.4 (4.8-10.8) X10*3/uL RBC 4.47 (4.20-5.50) X10*6/uL Hgb 11.7 L (12.0-16.0) g/dl Hct 35.8 L (37.0-47.0) % MCV 80.1 (80.0-98.0) fL MCH 26.2 L (27.0-33.0) pg MCHC 32.7 (31.0-35.0) g/dl RDW 14.0 (11.0-16.0) % Plt Count 293 (160-400) X10*3/uL MPV 11.2 (9.4-12.3) fL Immature Gran % (Auto) 0.1 (0.0-0.4) % Neut % (Auto) 51.5 (45-73) % Lymph % (Auto) 39.9 (20-40) % Morton % (Auto) 6.2 (2-11) % Eos % (Auto) 1.6 (0-4) % Baso % (Auto) 0.7 (0-2) % Lymph # (Auto) 3.0 (1.2-4.9) X10*3/uL Morton # (Auto) 0.5 (0.1-1.2) X10*3/uL Eos # (Auto) 0.1 (0.0-0.4) X10*3/uL Baso # (Auto) 0.1 (0.0-0.2) X10*3/uL Abs Immat Gran (auto) 0.01 (0.00-0.03) X10*3/uL Absolute Neuts (auto) 3.8 (2.0-8.3) x10*3/uL Absolute Nucleated RBC 0.000 (0.0-0.012) X10*3/uL Nucleated RBC % (auto) 0.0 (0.0-0.2) /100WBC PT 10.9 (10.0-13.1) SEC INR 1.0 (0.9-1.1) Sodium 138 (135-145) mmol/L Potassium 3.9 (3.3-5.1) mmol/L Chloride 104 (96-108) mmol/L Carbon Dioxide 27 (22-29) mmol/L Anion Gap 11 L (12-20) BUN 12 (9-16) mg/dL Creatinine 0.63 (0.5-1.4) mg/dL Estim Creat Clear Calc 95.6 Estimated GFR > 60 Random Glucose 88 (60-115) mg/dL Calcium 9.6 (8.4-10.2) mg/dL Magnesium 2.0 (1.6-2.6) mg/dL Total Bilirubin 0.2 (0.0-1.0) mg/dL AST 17 (5-31) U/L ALT 16 (0-31) U/L Alkaline Phosphatase 95 (39-117) U/L Troponin I High Sens (<3.5-17.0) ng/L Total Protein 7.6 (6.5-8.0) g/dL Albumin 4.3 (3.5-5.0) g/dL Beta HCG, Quant < 2 mIU/mL Influenza Type A (PCR) (Negative) Influenza Type B (PCR) (Negative) RSV RNA Qual (PCR) (Negative) SARS-CoV-2 RNA (RT-PCR) (Negative) 04/25/22 04/25/22 Range/Units 13:59 13:59 WBC (4.8-10.8) X10*3/uL RBC (4.20-5.50) X10*6/uL Hgb (12.0-16.0) g/dl Hct (37.0-47.0) % MCV (80.0-98.0) fL MCH (27.0-33.0) pg MCHC (31.0-35.0) g/dl RDW (11.0-16.0) % Plt Count (160-400) X10*3/uL MPV (9.4-12.3) fL Immature Gran % (Auto) (0.0-0.4) % Neut % (Auto) (45-73) % Lymph % (Auto) (20-40) % Morton % (Auto) (2-11) % Eos % (Auto) (0-4) % Baso % (Auto) (0-2) % Lymph # (Auto) (1.2-4.9) X10*3/uL Morton # (Auto) (0.1-1.2) X10*3/uL Eos # (Auto) (0.0-0.4) X10*3/uL Baso # (Auto) (0.0-0.2) X10*3/uL Abs Immat Gran (auto) (0.00-0.03) X10*3/uL Absolute Neuts (auto) (2.0-8.3) x10*3/uL Absolute Nucleated RBC (0.0-0.012) X10*3/uL Nucleated RBC % (auto) (0.0-0.2) /100WBC PT (10.0-13.1) SEC INR (0.9-1.1) Sodium (135-145) mmol/L Potassium (3.3-5.1) mmol/L Chloride (96-108) mmol/L Carbon Dioxide (22-29) mmol/L Anion Gap (12-20) BUN (9-16) mg/dL Creatinine (0.5-1.4) mg/dL Estim Creat Clear Calc Estimated GFR Random Glucose (60-115) mg/dL Calcium (8.4-10.2) mg/dL Magnesium (1.6-2.6) mg/dL Total Bilirubin (0.0-1.0) mg/dL AST (5-31) U/L ALT (0-31) U/L Alkaline Phosphatase (39-117) U/L Troponin I High Sens < 3.5 (<3.5-17.0) ng/L Total Protein (6.5-8.0) g/dL Albumin (3.5-5.0) g/dL Beta HCG, Quant mIU/mL Influenza Type A (PCR) NEGATIVE (Negative) Influenza Type B (PCR) NEGATIVE (Negative) RSV RNA Qual (PCR) NEGATIVE (Negative) SARS-CoV-2 RNA (RT-PCR) NEGATIVE (Negative) <LIGIA Rivera - Last Filed: 04/25/22 13:33> Lab Results 04/25/22 04/25/22 04/25/22 Range/Units 13:59 13:59 13:59 WBC 7.4 (4.8-10.8) X10*3/uL RBC 4.47 (4.20-5.50) X10*6/uL Hgb 11.7 L (12.0-16.0) g/dl Hct 35.8 L (37.0-47.0) % MCV 80.1 (80.0-98.0) fL MCH 26.2 L (27.0-33.0) pg MCHC 32.7 (31.0-35.0) g/dl RDW 14.0 (11.0-16.0) % Plt Count 293 (160-400) X10*3/uL MPV 11.2 (9.4-12.3) fL Immature Gran % (Auto) 0.1 (0.0-0.4) % Neut % (Auto) 51.5 (45-73) % Lymph % (Auto) 39.9 (20-40) % Morton % (Auto) 6.2 (2-11) % Eos % (Auto) 1.6 (0-4) % Baso % (Auto) 0.7 (0-2) % Lymph # (Auto) 3.0 (1.2-4.9) X10*3/uL Morton # (Auto) 0.5 (0.1-1.2) X10*3/uL Eos # (Auto) 0.1 (0.0-0.4) X10*3/uL Baso # (Auto) 0.1 (0.0-0.2) X10*3/uL Abs Immat Gran (auto) 0.01 (0.00-0.03) X10*3/uL Absolute Neuts (auto) 3.8 (2.0-8.3) x10*3/uL Absolute Nucleated RBC 0.000 (0.0-0.012) X10*3/uL Nucleated RBC % (auto) 0.0 (0.0-0.2) /100WBC PT 10.9 (10.0-13.1) SEC INR 1.0 (0.9-1.1) Sodium 138 (135-145) mmol/L Potassium 3.9 (3.3-5.1) mmol/L Chloride 104 (96-108) mmol/L Carbon Dioxide 27 (22-29) mmol/L Anion Gap 11 L (12-20) BUN 12 (9-16) mg/dL Creatinine 0.63 (0.5-1.4) mg/dL Estim Creat Clear Calc 95.6 Estimated GFR > 60 Random Glucose 88 (60-115) mg/dL Calcium 9.6 (8.4-10.2) mg/dL Magnesium 2.0 (1.6-2.6) mg/dL Total Bilirubin 0.2 (0.0-1.0) mg/dL AST 17 (5-31) U/L ALT 16 (0-31) U/L Alkaline Phosphatase 95 (39-117) U/L Troponin I High Sens (<3.5-17.0) ng/L Total Protein 7.6 (6.5-8.0) g/dL Albumin 4.3 (3.5-5.0) g/dL Beta HCG, Quant < 2 mIU/mL Influenza Type A (PCR) (Negative) Influenza Type B (PCR) (Negative) RSV RNA Qual (PCR) (Negative) SARS-CoV-2 RNA (RT-PCR) (Negative) 04/25/22 04/25/22 Range/Units 13:59 13:59 WBC (4.8-10.8) X10*3/uL RBC (4.20-5.50) X10*6/uL Hgb (12.0-16.0) g/dl Hct (37.0-47.0) % MCV (80.0-98.0) fL MCH (27.0-33.0) pg MCHC (31.0-35.0) g/dl RDW (11.0-16.0) % Plt Count (160-400) X10*3/uL MPV (9.4-12.3) fL Immature Gran % (Auto) (0.0-0.4) % Neut % (Auto) (45-73) % Lymph % (Auto) (20-40) % Morton % (Auto) (2-11) % Eos % (Auto) (0-4) % Baso % (Auto) (0-2) % Lymph # (Auto) (1.2-4.9) X10*3/uL Morton # (Auto) (0.1-1.2) X10*3/uL Eos # (Auto) (0.0-0.4) X10*3/uL Baso # (Auto) (0.0-0.2) X10*3/uL Abs Immat Gran (auto) (0.00-0.03) X10*3/uL Absolute Neuts (auto) (2.0-8.3) x10*3/uL Absolute Nucleated RBC (0.0-0.012) X10*3/uL Nucleated RBC % (auto) (0.0-0.2) /100WBC PT (10.0-13.1) SEC INR (0.9-1.1) Sodium (135-145) mmol/L Potassium (3.3-5.1) mmol/L Chloride (96-108) mmol/L Carbon Dioxide (22-29) mmol/L Anion Gap (12-20) BUN (9-16) mg/dL Creatinine (0.5-1.4) mg/dL Estim Creat Clear Calc Estimated GFR Random Glucose (60-115) mg/dL Calcium (8.4-10.2) mg/dL Magnesium (1.6-2.6) mg/dL Total Bilirubin (0.0-1.0) mg/dL AST (5-31) U/L ALT (0-31) U/L Alkaline Phosphatase (39-117) U/L Troponin I High Sens < 3.5 (<3.5-17.0) ng/L Total Protein (6.5-8.0) g/dL Albumin (3.5-5.0) g/dL Beta HCG, Quant mIU/mL Influenza Type A (PCR) NEGATIVE (Negative) Influenza Type B (PCR) NEGATIVE (Negative) RSV RNA Qual (PCR) NEGATIVE (Negative) SARS-CoV-2 RNA (RT-PCR) NEGATIVE (Negative) <LIGIA Piedra - Last Filed: 04/27/22 10:24> Discharge Plan Discharge Clinical Impression: Bronchitis <LIGIA Rivera - Last Filed: 04/25/22 13:33> Patient Disposition: Home, Self-Care <LIGIA Rivera - Last Filed: 04/25/22 13:33> Additional Instructions: workup today did not show any worrisome findings in blood test EKG or chest x-ray Testing for flu and COVID were negative Your exam and vital signs were normal As you have had a cough for a month we perscribed Zithromax antibiotic for bronchitis Return to the ER any time any worse condition or concerns If needed for nasal congestion you could try Afrin spray available [id number] for several days <LIGIA Rivera - Last Filed: 04/25/22 13:33> Prescriptions: New azithromycin [Zithromax Z-Van] 250 mg tablet See Rx Instructions .ROUTE .COMPLEX Qty: 6 0RF Rx Instructions: For 250 mg dose pack: take 500 mg today (day 1), then 250 mg for 4 days (days 2-5) No Action doxycycline hyclate 100 mg tablet 100 mg PO BID Qty: 20 0RF multivitamin [Daily Multi-Vitamin] Tablet 1 tab PO DAILY <LIGIA Rivera - Last Filed: 04/25/22 13:33> Stand Alone Forms: Work/School Release <LIGIA Rivera - Last Filed: 04/25/22 13:33> Discharge Date/Time: 04/25/22 16:59 <LIGIA Rivera - Last Filed: 04/25/22 13:33>
--- NOTE | 2022-04-25 13:09 | ECG_ITS ---
Test Reason : SHORTNESS OF BREATH Blood Pressure : / mmHG Vent. Rate : 087 BPM Atrial Rate : 087 BPM P-R Int : 164 ms QRS Dur : 076 ms QT Int : 352 ms P-R-T Axes : 118 134 129 degrees QTc Int : 423 ms Suspect limb lead reversal, interpretation assumes no reversal Normal sinus rhythm Lateral infarct , age undetermined Abnormal ECG When compared with ECG of 19-APR-2020 09:18, QRS axis Shifted right Lateral infarct is now Present T wave inversion now evident in Lateral leads Referred By: Sabrina King Electronically Signed By:
[2022-04-25 14:04] LABS: MANUAL DIFF FLAG NO
[2022-04-25 14:07] LABS: Basophils Absolute Auto 0.1 X10*3/uL (0.0-0.2); Basophils Percent Auto 0.7 % (0-2); Eosinophils Absolute Auto 0.1 X10*3/uL (0.0-0.4); Eosinophils Percent Auto 1.6 % (0-4); Hematocrit 35.8 % (37.0-47.0); Hemoglobin 11.7 g/dl (12.0-16.0); Imm Gran Abs Auto 0.01 X10*3/uL (0.00-0.03); Imm Gran Pct Auto 0.1 % (0.0-0.4); Lymphocytes Percent Auto 39.9 % (20-40); Mean Corpuscular HGB Conc 32.7 g/dl (31.0-35.0); Mean Corpuscular Hemoglobin 26.2 pg (27.0-33.0); Mean Corpuscular Volume 80.1 fL (80.0-98.0); Mean Platelet Volume 11.2 fL (9.4-12.3); Monocytes Absolute Auto 0.5 X10*3/uL (0.1-1.2); Monocytes Percent Auto 6.2 % (2-11); Neutrophils Absolute Auto 3.8 x10*3/uL (2.0-8.3); Neutrophils Percent Auto 51.5 % (45-73); Platelet Count 293 X10*3/uL (160-400); Red Blood Count 4.47 X10*6/uL (4.20-5.50); White Blood Count 7.4 X10*3/uL (4.8-10.8)
[2022-04-25 14:12] VITALS: BP 124/84; PULSE 88; RESP 16; TEMP 36.8; O2SAT 100
[2022-04-25 14:31] LABS: Prothrombin Time 10.9 SEC (10.0-13.1)
[2022-04-25 14:34] LABS: Alanine Aminotransferase 16 U/L (0-31); Albumin Level 4.3 g/dL (3.5-5.0); Alkaline Phosphatase 95 U/L (39-117); Anion Gap 11 (12-20); Aspartate Amino Transferase 17 U/L (5-31); Bilirubin Total 0.2 mg/dL (0.0-1.0); Blood Urea Nitrogen 12 mg/dL (9-16); Calcium 9.6 mg/dL (8.4-10.2); Carbon Dioxide 27 mmol/L (22-29); Chloride 104 mmol/L (96-108); Creatinine Clr Calc Pharmacy 95.6; Estimated Glomerular Filt Rate > 60; Glucose Random 88 mg/dL (60-115); Potassium 3.9 mmol/L (3.3-5.1); Sodium 138 mmol/L (135-145); Total Protein 7.6 g/dL (6.5-8.0)
[2022-04-25 14:35] LABS: Troponin-I High Sensitivity < 3.5 ng/L (<3.5-17.0)
[2022-04-25 14:36] LABS: HCG Quantitative < 2 mIU/mL
[2022-04-25 14:52] LABS: Influenza A PCR NEGATIVE (Negative); Influenza B PCR NEGATIVE (Negative); Resp Syncy Virus RNA Qual PCR NEGATIVE (Negative); SARS COV2 PCR INHOUSE NEGATIVE (Negative)
--- NOTE | 2022-04-25 15:28 | ECG_ITS ---
Test Reason : CHEST PAIN Blood Pressure : / mmHG Vent. Rate : 086 BPM Atrial Rate : 086 BPM P-R Int : 188 ms QRS Dur : 078 ms QT Int : 360 ms P-R-T Axes : 059 032 046 degrees QTc Int : 430 ms Normal sinus rhythm Normal ECG When compared with ECG of 25-APR-2022 13:47, No significant change was found Referred By: Frank Guevara Electronically Signed By:MARIALUISA SNELL MD
== END 2022-04-25 16:59 | disposition home or self-care (01) ==
PROVIDERS: Physician Assistant Medical; Emergency Provider Emergency Medicine Emergency Medical Services; PCP Internal Medicine
DX: J40 Bronchitis, not specified as acute or chronic (principal); R07.89 Other chest pain; Z20.822 Contact with and (suspected) exposure to COVID-19; Z20.828 Contact with and (suspected) exposure to other viral communicable diseases; Z79.899 Other long term (current) drug therapy
CPT/HCPCS: 0241U; 71046; 80053; 83735; 84484; 84702; 85025; 85610; 93005; 99283; 99284

== ENCOUNTER 2023-01-23 13:12 | Emergency (ER) | payer OTHER, SELFPAY ==
[2023-01-23 14:45] VITALS: BP 165/90; PULSE 100; RESP 18; TEMP 36.3; O2SAT 100; BMI 24.2
--- NOTE | 2023-01-23 14:45 | ED_ITS ---
HPI - General Adult General Chief complaint: General Medical Stated complaint: l sided facial pain Time Seen by Provider: 01/23/23 20:05 Source: patient Mode of arrival: ambulatory History of Present Illness HPI narrative: 33-year-old female who presents with onset of left eye pain earlier today in associated tingling on the left side of her body that she describes is a little bit of cramping and denies any recent illnesses, fevers, chills, travel, tick exposure, falls. Patient reports that she has had blurred vision in both eyes but at this time denies any visual changes. She has not been to an eye doctor and states that her primary complaint is the left eye. Related Data Home Medications Medication Instructions Recorded Confirmed multivitamin (Daily Multi-Vitamin 1 tab PO DAILY 05/01/20 03/15/22 tablet) Previous Rx's Medication Instructions Recorded doxycycline hyclate 100 mg tablet 100 mg PO BID #20 tabs 03/15/22 azithromycin 250 mg tablet See Rx Instructions PO .COMPLEX #6 04/25/22 (Zithromax Z-Van) tabs Allergies Allergy/AdvReac Type Severity Reaction Status Date / Time No Known Allergies Allergy Verified 01/23/23 14:50 [No Known Allergies*] Review of Systems 2 Review of Systems: Pertinent positives and negatives as stated in [facility] Past Medical History Source: nursing notes reviewed Medical History Allergic rhinitis Anemia Dry mouth Dryness of eye Heavy menses Jaw clicking Pituitary adenoma Vitamin D deficiency Xerostomia Surgical History No pertinent past surgical history Family History Family History Father CVD (cardiovascular disease) Hypertension Mother Alive and well Maternal Aunt Breast cancer Social History Social History Housing: House Alcohol intake: never Patient Tobacco Use Status: Never used Tobacco Smoked in Last 30 Days: No Second Hand Smoke Exposure: No Use of substances other than those prescribed or required for medical reasons: No Advance Directives: No Advance Directives Information Provided: No Current occupational status: employed Gender identity: Female Cognitive needs: No Hearing needs: No Vision needs: No Physical Exam ED Vital Signs: Vital Signs - 24 hr 01/23/23 14:45 01/23/23 19:08 01/23/23 20:47 Temperature 97.4 F 98.3 F Pulse Rate 100 88 77 Respiratory Rate 18 18 16 Blood Pressure 165/90 H 144/87 H 129/88 Pulse Oximetry 100 100 100 Oxygen Delivery Method Room Air Room Air Room Air 01/23/23 20:49 01/23/23 20:49 01/23/23 20:51 Temperature Pulse Rate 80 75 84 Respiratory Rate Blood Pressure 129/88 129/88 128/85 Pulse Oximetry Oxygen Delivery Method BMI result Body Mass Index 24.2 VITAL SIGNS: Reviewed. GENERAL: Well developed, well nourished, in no acute distress. HEAD: Normocephalic/atraumatic EYES: PERRLA, EOMI EARS: Ext canals without abnormality, TMs non-bulging and non-erythematous NOSE: Nares patent bilateral OROPHARYNX: no oral lesions noted, posterior pharynx clear and non-erythematous without noted tonsillar enlargement/erythema/exudates NECK: Supple, no adenopathy LUNGS: Normal breath sounds. No adventitious sounds or accessory muscle use. SpO2<100> CARDIOVASCULAR: Regular rate and rhythm without noted murmurs ABDOMEN: Soft, non-tender, non-distended with bowel sounds. MUSCULOSKELETAL: No tenderness, deformities, or effusions noted on gross inspection. EXTREMITIES: No cyanosis, clubbing or edema. SKIN: Inspection of the skin reveals no rashes NEUROLOGIC: Alert and oriented x 4. Strength and sensation to light touch were grossly intact x 4, no facial asymmetry, no pronator drift, cranial nerves 2-12 are grossly intact Course Course Course Narrative: RME: 33yo F w/no PMHx c/o L eye/facial pain & L side of body pain/tingling and cramping intermittently x few weeks, worsening today. +blurry vision bilaterally. Admits to feeling lightheaded today at work No focal deficits, church secretary intact, ambulating w/steady gait EKG, Labs, UA ordered Full HPI, ROS and PE to be performed by primary ED provider. Medical Decision Making Medical Decision Making MDM Narrative: 33-year-old female with history and clinical presentation suggestive of possible nonmedical paresthesias, electrolyte abnormalities/infection but no clinical suspicion for TMJ/herpes zoster/tick related illness. I did review all previous documentation which included a referral to a slab lifting engineer/steam meter reader. I have no concerns for central abnormalities. Visual exam demonstrated EOMI without gaze palsies pupillary reflex brisk and visual acuity exam demonstrates 20/25 vision in both eyes and each eye by itself. No concerns for acute angle glaucoma. On review of all investigations hematologic indices do not demonstrate any leukocytosis, anemia, thrombocytopenia and ESR although mildly elevated demonstrating an inflammatory response appears to be unchanged from 2021 and is not consistent with a giant cell arteritis etiology although this is not consistent with clinical exam either. Coagulation studies are within normal limits. Chemistry indices are grossly within normal limits and there is no demonstrated GUI or electrolyte/liver enzyme abnormalities, high sensitivity troponin is undetectable and CRP is within normal limits. Urinalysis is negative for UTI or hematuria. On review of prior [facility] laboratory results the antibodies appear to be undetectable. Viral testing today is negative for COVID-19 and influenza. Urine test is negative. I discussed all results with the patient at bedside and strongly recommended that she follow-up with an mine equipment design engineer for an in depth eye exam and patient has a follow-up appointment with her primary care provider on February 05. Differential Diagnosis Differential Diagnoses: The differential diagnosis associated with the presentation includes Please see the discussion above Admission/Observation Consideration of admission/observation: Escalation of care including admission/observation considered Please see the discussion above Lab Data MDM Lab Attestation statement: I reviewed the patient's lab results. Please see the discussion above 01/23/23 15:17 01/23/23 15:17 Labs: Lab Results 01/23/23 Range/Units 15:17 WBC 10.7 (4.8-10.8) X10*3/uL RBC 4.74 (4.20-5.50) X10*6/uL Hgb 12.3 (12.0-16.0) g/dl Hct 37.9 (37.0-47.0) % MCV 80.0 (80.0-98.0) fL MCH 25.9 L (27.0-33.0) pg MCHC 32.5 (31.0-35.0) g/dl RDW 13.0 (11.0-16.0) % Plt Count 321 (160-400) X10*3/uL MPV 11.4 (9.4-12.3) fL Immature Gran % (Auto) 0.4 (0.0-0.4) % Neut % (Auto) 78.1 H (45-73) % Lymph % (Auto) 16.2 L (20-40) % [place] % (Auto) 4.7 (2-11) % Eos % (Auto) 0.2 (0-4) % Baso % (Auto) 0.4 (0-2) % Lymph # (Auto) 1.7 (1.2-4.9) X10*3/uL [place] # (Auto) 0.5 (0.1-1.2) X10*3/uL Eos # (Auto) 0.0 (0.0-0.4) X10*3/uL Baso # (Auto) 0.0 (0.0-0.2) X10*3/uL Abs Immat Gran (auto) 0.04 H (0.00-0.03) X10*3/uL Absolute Neuts (auto) 8.4 H (2.0-8.3) x10*3/uL Absolute Nucleated RBC 0.000 (0.0-0.012) X10*3/uL Nucleated RBC % (auto) 0.0 (0.0-0.2) /100WBC ESR 26 H (0-20) MM/HR PT 11.6 (11.1-13.3) SEC INR 1.0 (0.9-1.1) Sodium 139 (135-145) mmol/L Potassium 3.7 (3.3-5.1) mmol/L Chloride 103 (96-108) mmol/L Carbon Dioxide 25 (22-29) mmol/L Anion Gap 15 (12-20) BUN 13 (9-16) mg/dL Creatinine 0.62 (0.5-1.4) mg/dL Estim Creat Clear Calc 96.2 Estimated GFR > 60 Random Glucose 88 (60-115) mg/dL Calcium 10.1 (8.4-10.2) mg/dL Magnesium 2.2 (1.6-2.6) mg/dL Total Bilirubin 0.3 (0.0-1.0) mg/dL Direct Bilirubin 0.1 (0.0-0.5) mg/dL AST 17 (5-31) U/L ALT 16 (0-31) U/L Alkaline Phosphatase 95 (39-117) U/L Troponin I High Sens < 2.7 (<3.5-17.0) ng/L C-Reactive Protein 0.37 (< or = 0.50) mg/dL Total Protein 8.2 H (6.5-8.0) g/dL Albumin 4.4 (3.5-5.0) g/dL COVID-19 ([facility]) Negative (Negative) COVID-19 Clin Com See Note Influenza Type A (MICKEY) Negative (Negative) Influenza Type B (MICKEY) Negative (Negative) Influenza A & B Note See Note Independent Interpretation I performed an independent interpretation of an: EKG Interpretation: Sinus tachycardia, HR-102, no STEMI, OH/QRS/QTC is within normal limits. External Record Review External record reviewed: Office record, Outpatient record, Prior outpatient labs and Prior outpatient radiology Discharge Plan Discharge Clinical Impression: Anxiety, Paresthesias, Left eye pain Patient Disposition: Home, Self-Care Instructions: Paresthesia (ED), Eye Pain (ED) Additional Instructions: 1. I strongly recommend that you follow-up with an burial vault maker or mine equipment design engineer to get an in depth and dilated eye exam. Your visual acuity here today was within normal limits. 2. Keep your scheduled appointment with your primary care provider. Return to the ER for any worsening symptoms. Prescriptions: No Action azithromycin [Zithromax Z-Van] 250 mg tablet See Rx Instructions .ROUTE .COMPLEX Qty: 6 0RF Rx Instructions: For 250 mg dose pack: take 500 mg today (day 1), then 250 mg for 4 days (days 2-5) doxycycline hyclate 100 mg tablet 100 mg PO BID Qty: 20 0RF multivitamin [Daily Multi-Vitamin] Tablet 1 tab PO DAILY Referrals: Po,Olamide Luther MD [Primary Care Provider] -
--- NOTE | 2023-01-23 14:48 | ECG_ITS ---
Test Reason : weakness Blood Pressure : / mmHG Vent. Rate : 102 BPM Atrial Rate : 102 BPM P-R Int : 168 ms QRS Dur : 070 ms QT Int : 340 ms P-R-T Axes : 054 028 033 degrees QTc Int : 443 ms Sinus tachycardia Possible Left atrial enlargement Borderline ECG When compared with ECG of 25-APR-2022 15:38, Heart rate has increased Referred By: Cheryle Gil Electronically Signed By:GUY BARAJAS MD
[2023-01-23 15:23] LABS: MANUAL DIFF FLAG NO
[2023-01-23 15:24] LABS: Basophils Percent Auto 0.4 % (0-2); Eosinophils Percent Auto 0.2 % (0-4); Hematocrit 37.9 % (37.0-47.0); Hemoglobin 12.3 g/dl (12.0-16.0); Imm Gran Abs Auto 0.04 X10*3/uL (0.00-0.03); Imm Gran Pct Auto 0.4 % (0.0-0.4); Lymphocytes Absolute Auto 1.7 X10*3/uL (1.2-4.9); Lymphocytes Percent Auto 16.2 % (20-40); Mean Corpuscular HGB Conc 32.5 g/dl (31.0-35.0); Mean Corpuscular Hemoglobin 25.9 pg (27.0-33.0); Mean Platelet Volume 11.4 fL (9.4-12.3); Monocytes Absolute Auto 0.5 X10*3/uL (0.1-1.2); Monocytes Percent Auto 4.7 % (2-11); Neutrophils Absolute Auto 8.4 x10*3/uL (2.0-8.3); Neutrophils Percent Auto 78.1 % (45-73); Platelet Count 321 X10*3/uL (160-400); Red Blood Count 4.74 X10*6/uL (4.20-5.50); White Blood Count 10.7 X10*3/uL (4.8-10.8)
[2023-01-23 15:30] LABS: Prothrombin Time 11.6 SEC (11.1-13.3)
[2023-01-23 15:39] LABS: Alanine Aminotransferase 16 U/L (0-31); Albumin Level 4.4 g/dL (3.5-5.0); Alkaline Phosphatase 95 U/L (39-117); Anion Gap 15 (12-20); Aspartate Amino Transferase 17 U/L (5-31); Bilirubin Direct 0.1 mg/dL (0.0-0.5); Bilirubin Total 0.3 mg/dL (0.0-1.0); Blood Urea Nitrogen 13 mg/dL (9-16); Calcium 10.1 mg/dL (8.4-10.2); Carbon Dioxide 25 mmol/L (22-29); Chloride 103 mmol/L (96-108); Creatinine Clr Calc Pharmacy 96.2; Estimated Glomerular Filt Rate > 60; Glucose Random 88 mg/dL (60-115); Magnesium 2.2 mg/dL (1.6-2.6); Potassium 3.7 mmol/L (3.3-5.1); Sodium 139 mmol/L (135-145); Total Protein 8.2 g/dL (6.5-8.0)
[2023-01-23 15:40] LABS: COVID-19 Test Negative (Negative); IDNOW Serial# 08D9AD1C; IDNOW Serial# BCCEAD1C; Influenza A Negative (Negative); Influenza B2 Negative (Negative)
[2023-01-23 15:46] LABS: Troponin-I High Sensitivity < 2.7 ng/L (<3.5-17.0)
[2023-01-23 19:08] VITALS: BP 144/87; PULSE 88; RESP 18; TEMP 36.8; O2SAT 100
[2023-01-23 20:36] LABS: C Reactive Protein 0.37 mg/dL (< or = 0.50)
[2023-01-23 20:47] VITALS: BP 129/88; PULSE 77; RESP 16; O2SAT 100
[2023-01-23 20:49] VITALS: BP 129/88; PULSE 75; PULSE 80
[2023-01-23 20:51] VITALS: BP 128/85; PULSE 84
[2023-01-23 20:59] LABS: Erythrocyte Sedimentation Rate 26 MM/HR (0-20)
--- NOTE | 2023-01-23 21:00 | PC.NURSE ---
Orthostatics complete; pt denies dizziness with positional changes. vss. perrla. visual acuity done by tech as documented. no redness/swelling noted of L. eye which pt states is where her pain is. pt ambulatory to bathroom with steady gait.
[2023-01-23 21:41] LABS: Appearance Urine Clear; Color Urine Yellow; Glucose Urine UA Negative (Negative); Leukocyte Esterase Urine Negative (Negative); Nitrite Urine Negative (Negative); Urine Blood Negative (Negative); Urine Ketones Trace mg/dL (Negative); Urine Protein Negative (Neg-Trace)
[2023-01-23 21:43] LABS: UPreg QC Valid YES; Urine Pregnancy NEGATIVE (NEGATIVE)
== END 2023-01-23 22:15 | disposition home or self-care (01) ==
PROVIDERS: Physician Assistant; Emergency Provider Student in an Organized Health Care Education/Training Program; PCP Internal Medicine
DX: F41.9 Anxiety disorder, unspecified (principal); R20.2 Paresthesia of skin; H57.12 Ocular pain, left eye; Z11.52 Encounter for screening for COVID-19
CPT/HCPCS: 36415; 80048; 80076; 81003; 81025; 83735; 84484; 85025; 85610; 85652; 86140; 87502; 87635; 93005; 99283; 99285

== ENCOUNTER 2023-02-05 10:35 | Outpatient (AMB) | payer OTHER, SELFPAY ==
--- NOTE | 2023-02-05 10:42 | MHC.PC.OV ---
Vital Signs 02/05/23 10:44 Height 4 ft 11 in Weight 123 lb BMI 24.8 BP 124/76 Blood Pressure Location Lt brachial Position Sitting Pulse 89 Pulse Source Pulse Oximeter Pulse Oximetry (%) 100 Oxygen Delivery Method Room Air Intake Visit Reasons: check up f/u Allergies No Known Allergies [No Known Allergies*] Allergy (Verified 02/05/23 10:45) Tobacco use date assessed: 02/05/23 Dental Screening Dental Screen Date: 02/05/23 Did you have a dental visit in the last 12 months?: Yes Did you have a dental problem in the last 6 months where you did not have access to dental care?: No Was dental information given to patient?: Patient has dentist HPI check up f/u HPI Details 33-year-old female with a history of pituitary adenoma constipation and multiple pigmented nevi last seen in November 2021 coming in for follow-up. Advised blood work at that time. Noted ER visit recently January 2023 for left eye pain diagnosis of anxiety, paresthesias patient was given an antibiotic April noted ER visit for upper respiratory tract infection diagnosis bronchitis. March was noted also having a skin abscess treated with doxycycline. COVID-19 infection March 2022. L eye pain - seen intelligence senior sergeant this week- state no problem, - was , do have a history of migraine. states do have cramps of the L hand and L thigh and knee. [facility] Medical History (Updated 02/05/23 @ 11:19 by Olamide Rodriguez MD) Left eye pain Heavy menses Pituitary adenoma Allergic rhinitis Xerostomia Vitamin D deficiency Anemia Dry mouth Dryness of eye Jaw clicking Surgical History No pertinent past surgical history Family History (Updated 02/05/23 @ 10:46 by Laly Taylor CMA) Father CVD (cardiovascular disease) Hypertension Mother Alive and well Maternal Aunt Breast cancer Social History Housing: House Alcohol intake: never Patient Tobacco Use Status: Never used Tobacco e-Cigarette/Vaping Use: Never Used Second Hand Smoke Exposure: No Current occupational status: employed Gender identity: Female Cognitive needs: No Hearing needs: No Vision needs: Yes Female Reproductive History Menstrual Age of Menarche: 11 Questionnaire PHQ-9 Over the last 2 weeks, how often have you been bothered by any of the following problems? 1. Little interest or pleasure in doing things: not at all 2. Feeling down, depressed, or hopeless: not at all 3. Trouble falling or staying asleep, or sleeping too much: not at all 4. Feeling tired or having little energy: not at all 5. Poor appetite or overeating: not at all 6. Feeling bad about yourself - or that you are a failure or have let yourself or your family down: not at all 7. Trouble concentrating on things, such as reading the newspaper or watching television: not at all 8. Moving or speaking so slowly that other people could have noticed. Or the opposite - being so fidgety or restless that you have been moving around a lot more than usual: not at all 9. Thoughts that you would be better off or of hurting yourself in some way: not at all Total score: 0 Depression Screening Interpretation: Negative Depression Screening Done: Yes 11950 - PHQ-9 Billing: Yes Source: Developed by Drs. Vipin Regan, Fiordaliza Garibay, Ajith Pickard and colleagues, with an educational bereket from [employer]. Thrive Questionnaire Date Thrive assessed: 02/05/23 I am a: Patient What is your living situation today?: I have a steady place to live Within the past 12 months, did the food you bought not last and you didn't have the money to get more?: Never true Within the past 12 months, did you worry whether your food would run out before you got money to buy more?: Never true Do you have trouble paying for medicines?: Yes Do you have trouble getting transportation to medical appointments?: Yes Do you have trouble paying your heating and electricity bill?: Yes Do you have trouble taking care of your child, family member or friend?: Yes Do you have trouble with day-to-day activities such as bathing, preparing meals, shopping, managing finances, etc.?: Yes Are you currently unemployed and looking for a job?: Yes Are you interested in more education?: Yes Currently or been in a relationship where the following occur: no concerns reported AUDIT C Alcohol Use Questionnaire (AUDIT-C) 1. How often do you have a drink containing alcohol?: Never 3. How often do you have six or more drinks on one occasion?: Never (0) Total Score: 0 Score Reviewed/Action Taken: No AUGUSTO-7 AMB Questionnaire AUGUSTO-7 Date AUGUSTO - 7 assessed: 02/05/23 Feeling nervous, anxious, or on edge: 0 = Not at all Not being able to stop or control worryin = Not at all Worrying too much about different things: 0 = Not at all Trouble relaxin = Not at all Being so restless that it is hard to sit still: 0 = Not at all Becoming easily annoyed or irritable: 0 = Not at all Feeling afraid as if something awful might happen: 0 = Not at all Total AUGUSTO-7 score (0-4 normal; 5-9 mild; 10-14 moderate; 15-21 severe): 0 Source: Developed by Drs. Vipin Regan, Fiordaliza Garibay, Ajith Pickard and colleagues, with an educational bereket from [employer]. AUGUSTO-7 Assessment Billing AUGUSTO-7 Assessment Tool: AUGUSTO-7 Assessment 24694 Physical exam (Primary Care) Vital Signs: Last Vital Signs Pulse 89 02/05/23 10:44 BP 124/76 02/05/23 10:44 Pulse Ox 100 02/05/23 10:44 Oxygen Delivery Method Room Air 02/05/23 10:44 BMI result Body Mass Index 24.8 Tobacco/Smoking Status: Tobacco use Status Tobacco use date assessed 02/05/23 02/05/23 10:48 Patient Tobacco Use Status Never used Tobacco 02/05/23 10:43 e-Cigarette/Vaping Use Never Used 02/05/23 10:48 PHQ-9: PHQ-9 Score PHQ-9: Total score 0 02/05/23 10:48 Depression Screening Interpretation: Negative Thrive Assessment: Date of Thrive Assessment Date Thrive assessed 02/05/23 02/05/23 10:48 Currently or been in a relationship where the following occur: no concerns reported Const General: alert; No acute distress Eyes Conjunctivae: conjunctivae normal Resp Auscultation: clear to auscultation bilaterally Cardio Rate: regular rate Rhythm: regular rhythm GI Inspection: Yes normal to inspection Extrem General: Yes normal to inspection and No edema Assessment and Plan Assessment & Plan (1) Pituitary adenoma: Comment: diagnosed 2013 in [place], MRI April 2018 0.3 cm interface between the anterior and posterior lobe Code(s): D35.2 - Benign neoplasm of pituitary gland (2) Constipation: Code(s): K59.00 - Constipation, unspecified (3) Left eye pain: Code(s): H57.12 - Ocular pain, left eye Plan: advisd to see ophthalmology (4) Cough: Code(s): R05.9 - Cough, unspecified Plan: patient was told to start claritin. if cough persist more that 1 month - call - will work Orders: Referrals Ophthalmology Referral H57.12 - Ocular pain, left eye Coding Level of Care Code Est Pt Level 4 (66920) Diagnoses Pituitary adenoma D35.2 Constipation K59.00 Left eye pain H57.12 Cough R05.9 Additional Codes AUGUSTO-7 Assessment Billing - AUGUSTO-7 Assessment Tool: AUGUSTO-7 Assessment 28098 ([id number])
[2023-02-05 10:44] VITALS: BP 124/76; PULSE 89; O2SAT 100; BMI 24.8
== END 2023-02-05 11:23 | disposition home or self-care (01) ==
PROVIDERS: PCP Internal Medicine; Visit Provider Internal Medicine
DX: D35.2 Benign neoplasm of pituitary gland (principal); K59.00 Constipation, unspecified; H57.12 Ocular pain, left eye; R05.9 Cough, unspecified
CPT/HCPCS: 99214

== ENCOUNTER 2023-05-05 08:45 | Outpatient (AMB) | payer OTHER, SELFPAY ==
[2023-05-05 09:32] VITALS: BP 130/78; PULSE 82; TEMP 36.6; O2SAT 98; BMI 25.0
--- NOTE | 2023-05-05 09:32 | AM.OFFWIN_ITS ---
Intake Vital Signs 05/05/23 09:32 Height 4 ft 11 in Weight 124 lb BMI 25.0 BP 130/78 Blood Pressure Location Lt brachial Position Sitting Pulse 82 Pulse Source Pulse Oximeter Temp 97.8 F Temp Source Oral Pulse Oximetry (%) 98 Intake Visit Reasons: EP Stomach pain [phone] Intake Note: pt is here for c/o stomach pain, denies diarrhea, pt suspects heart burn. patient states shes been having these symptoms since friday Patient Tobacco Use Status: Never used Tobacco Allergies No Known Allergies [No Known Allergies*] Allergy (Verified 05/05/23 10:00) Medication List - Last Reconciled 05/05/23 by Thor Garcia MD multivitamin (Daily Multi-Vitamin tablet) 1 tab PO DAILY Do you need a note to return to daycare/school/sports/work: Yes HPI EP Stomach pain [phone] HPI Details 33-year-old female presents to [facility] for a sick visit. Patient is reporting epigastric discomfort for the past week. Reports a sensation of fullness when she eats. No nausea or vomiting. No fevers or chills. [facility] Medical History (Updated 02/05/23 @ 11:19 by Olamide Rodriguez MD) Left eye pain Heavy menses Pituitary adenoma Allergic rhinitis Xerostomia Vitamin D deficiency Anemia Dry mouth Dryness of eye Jaw clicking Surgical History No pertinent past surgical history Family History (Updated 02/05/23 @ 10:46 by Laly Taylor CMA) Father CVD (cardiovascular disease) Hypertension Mother Alive and well Maternal Aunt Breast cancer Social History Housing: House Alcohol intake: never Patient Tobacco Use Status: Never used Tobacco e-Cigarette/Vaping Use: Never Used Second Hand Smoke Exposure: No Current occupational status: employed Gender identity: Female Cognitive needs: No Hearing needs: No Vision needs: Yes Female Reproductive History Menstrual Age of Menarche: 11 Physical Exam Vital Signs: Last Vital Signs Temp 97.8 F 05/05/23 09:32 Pulse 82 05/05/23 09:32 BP 130/78 05/05/23 09:32 Pulse Ox 98 05/05/23 09:32 BMI result Body Mass Index 25.0 Const General: cooperative and healthy appearing Nutritional Appearance: well nourished Orientation/consciousness: patient oriented x3 Limitations: no limitations HEENT Head: Yes normal to inspection Eyes General: appearance normal, both eyes and all related structures Neck Neck: Yes normal visual inspection Chest Chest palpation & inspection: normal palpation of entire chest wall Resp Effort & Inspection: normal respiratory effort Neuro General: patient oriented x3 Assessment & Plan Assessment & Plan (1) GERD (gastroesophageal reflux disease): Code(s): K21.9 - Gastro-esophageal reflux disease without esophagitis Plan: Pantoprazole called in. If symptoms not better to follow-up here. Coding Level of Care Code Est Pt Level 3 (51544) Diagnoses GERD (gastroesophageal reflux disease) K21.9
== END 2023-05-05 10:24 | disposition home or self-care (01) ==
PROVIDERS: PCP Internal Medicine; Visit Provider Internal Medicine
DX: K21.9 Gastro-esophageal reflux disease without esophagitis (principal)
CPT/HCPCS: 99213

== ENCOUNTER 2023-05-06 16:00 | Outpatient (REF) | payer OTHER, SELFPAY ==
[2023-05-06 16:22] LABS: Hematocrit 37.6 % (37.0-47.0); Hemoglobin 12.2 g/dl (12.0-16.0); Mean Corpuscular HGB Conc 32.4 g/dl (31.0-35.0); Mean Corpuscular Volume 80.2 fL (80.0-98.0); Mean Platelet Volume 11.7 fL (9.4-12.3); Platelet Count 299 X10*3/uL (160-400); Red Blood Count 4.69 X10*6/uL (4.20-5.50); Red Cell Distribution Width 13.4 % (11.0-16.0); White Blood Count 7.9 X10*3/uL (4.8-10.8)
[2023-05-06 17:22] LABS: Alanine Aminotransferase 13 U/L (0-31); Albumin Level 4.5 g/dL (3.5-5.0); Alkaline Phosphatase 78 U/L (39-117); Anion Gap 13 (12-20); Aspartate Amino Transferase 16 U/L (5-31); Bilirubin Direct 0.1 mg/dL (0.0-0.5); Bilirubin Total 0.4 mg/dL (0.0-1.0); Blood Urea Nitrogen 13 mg/dL (9-16); Calcium 9.7 mg/dL (8.4-10.2); Carbon Dioxide 26 mmol/L (22-29); Chloride 104 mmol/L (96-108); Estimated Glomerular Filt Rate > 60; Glucose Random 88 mg/dL (60-115); Potassium 3.7 mmol/L (3.3-5.1); Sodium 139 mmol/L (135-145); Total Protein 8.2 g/dL (6.5-8.0)
[2023-05-06 17:24] LABS: Erythrocyte Sedimentation Rate 23 MM/HR (0-20)
== END 2023-05-06 16:01 | disposition home or self-care (01) ==
LOC: HO.LAB 16:00
PROVIDERS: PCP Internal Medicine; Visit Provider Internal Medicine
DX: K21.9 Gastro-esophageal reflux disease without esophagitis (principal)
CPT/HCPCS: 36415; 80048; 80076; 85027; 85652

== ENCOUNTER 2023-06-09 08:03 | Outpatient (AMB) | payer OTHER, SELFPAY ==
--- NOTE | 2023-06-09 08:05 | MHC.OFFWIV ---
Intake Vital Signs 06/09/23 08:08 Height 4 ft 11 in BP 100/70 Blood Pressure Location Rt brachial Position Sitting Pulse 57 Pulse Source Pulse Oximeter Temp 98.1 F Temp Source Oral Pulse Oximetry (%) 100 Oxygen Delivery Method Room Air Intake Visit Reasons: EP AB pain Intake Note: pt is has returned to get rechecked for the adb pain she was seen for a few weeks ago the medication she was given has not been working pt was given pantoprazole 40 mg Patient Tobacco Use Status: Never used Tobacco Allergies No Known Allergies [No Known Allergies*] Allergy (Verified 06/09/23 08:20) Medication List - Last Reconciled 06/09/23 by Thor Garcia MD multivitamin (Daily Multi-Vitamin tablet) 1 tab PO DAILY Do you need a note to return to daycare/school/sports/work: Yes HPI EP AB pain HPI Details 33-year-old female presents to the office for a sick visit. Patient was seen a month ago for similar complaints of abdominal pain and bloated sensation. She was given pantoprazole. Patient reports no response to the medication. She feels nauseous without any vomiting. She feels a sense of bloated abdomen. Her frequency of passing stools has decreased. Patient reports no chance of . Her last period was 1 week ago. [facility] Medical History (Updated 02/05/23 @ 11:19 by Olamide Rodriguez MD) Left eye pain Heavy menses Pituitary adenoma Allergic rhinitis Xerostomia Vitamin D deficiency Anemia Dry mouth Dryness of eye Jaw clicking Surgical History No pertinent past surgical history Family History (Updated 02/05/23 @ 10:46 by Laly Taylor CMA) Father CVD (cardiovascular disease) Hypertension Mother Alive and well Maternal Aunt Breast cancer Social History Housing: House Alcohol intake: never Patient Tobacco Use Status: Never used Tobacco e-Cigarette/Vaping Use: Never Used Second Hand Smoke Exposure: No Current occupational status: employed Gender identity: Female Cognitive needs: No Hearing needs: No Vision needs: Yes Female Reproductive History Menstrual Age of Menarche: 11 Physical Exam Vital Signs: Last Vital Signs Temp 98.1 F 06/09/23 08:08 Pulse 57 06/09/23 08:08 BP 100/70 06/09/23 08:08 Pulse Ox 100 06/09/23 08:08 Oxygen Delivery Method Room Air 06/09/23 08:08 Const General: cooperative and healthy appearing Nutritional Appearance: well nourished Orientation/consciousness: patient oriented x3 Limitations: no limitations HEENT Head: Yes normal to inspection Eyes General: appearance normal, both eyes and all related structures Neck Neck: Yes normal visual inspection Chest Chest palpation & inspection: normal palpation of entire chest wall Resp Effort & Inspection: normal respiratory effort GI Other: No tenderness. Bowel sounds positive. Neuro General: patient oriented x3 Assessment & Plan Assessment & Plan (1) Abdominal pain: Code(s): R10.9 - Unspecified abdominal pain Plan: X-ray of the abdomen personally reviewed by me. Lot of fecal matter seen on the x-ray. Her symptoms could be due to constipation. Patient was advised to take milk of magnesia and enema. She has an appointment with her primary care for next week. If symptoms are not improving an ultrasound may be appropriate. Coding Level of Care Code Est Pt Level 4 (21029) Diagnoses Abdominal pain R10.9
[2023-06-09 08:08] VITALS: BP 100/70; PULSE 57; TEMP 36.7; O2SAT 100
== END 2023-06-09 09:59 | disposition home or self-care (01) ==
PROVIDERS: PCP Internal Medicine; Visit Provider Internal Medicine
DX: R10.9 Unspecified abdominal pain (principal)
CPT/HCPCS: 99214

== ENCOUNTER 2023-06-09 08:19 | Outpatient (REF) | payer OTHER, SELFPAY ==
--- NOTE | ~2023-06-09 | XR_ITS ---
EXAMINATION: XR ABDOMEN COMPLETE CLINICAL INDICATION: Abdominal pain COMPARISON: None available. TECHNIQUE: 2 views of the abdomen. FINDINGS: The bowel gas pattern is normal with no evidence of ileus or obstruction. No unusual soft tissue calcifications are noted. The bones are unremarkable. XR/XR abdomen min 2V IMPRESSION: Unremarkable examination.
== END 2023-06-09 08:20 | disposition home or self-care (01) ==
LOC: HO.HMGCX 08:19
PROVIDERS: PCP Internal Medicine; Visit Provider Internal Medicine
DX: R10.9 Unspecified abdominal pain (principal)
CPT/HCPCS: 74019

== ENCOUNTER 2023-06-17 11:09 | Outpatient (AMB) | payer OTHER, SELFPAY ==
--- NOTE | 2023-06-17 11:20 | MHC.PC.OV ---
Vital Signs 06/17/23 11:21 Height 4 ft 11 in Weight 113 lb BMI 22.8 BP 112/78 Blood Pressure Location Lt brachial Position Sitting Pulse 85 Pulse Source Pulse Oximeter Pulse Oximetry (%) 100 Oxygen Delivery Method Room Air Intake Visit Reasons: pe Allergies No Known Allergies [No Known Allergies*] Allergy (Verified 06/17/23 11:21) Medication List - Last Reconciled 06/17/23 by Olamide Rodriguez MD Tobacco use date assessed: 06/17/23 Dental Screening Dental Screen Date: 06/17/23 Did you have a dental visit in the last 12 months?: Yes Did you have a dental problem in the last 6 months where you did not have access to dental care?: No Was dental information given to patient?: Patient has dentist HPI pe HPI Details 33-year-old female with a history of pituitary adenoma coming in for physical exam last seen in February 2023. Recently seen in the Urgent Center in June for abdominal pain pantoprazole given with no response concern about constipation advised milk of magnesia.nausea, dizzy PFSH Medical History (Updated 06/17/23 @ 12:13 by Olamide Rodriguez MD) Left eye pain Heavy menses Pituitary adenoma Allergic rhinitis Xerostomia Vitamin D deficiency Anemia Dry mouth Dryness of eye Jaw clicking Surgical History No pertinent past surgical history Family History (Updated 02/05/23 @ 10:46 by Laly Taylor CMA) Father CVD (cardiovascular disease) Hypertension Mother Alive and well Maternal Aunt Breast cancer Social History Housing: House Alcohol intake: never Patient Tobacco Use Status: Never used Tobacco e-Cigarette/Vaping Use: Never Used Second Hand Smoke Exposure: No Current occupational status: employed Gender identity: Female Cognitive needs: No Hearing needs: No Vision needs: Yes Female Reproductive History Menstrual Age of Menarche: 11 Questionnaire PHQ-9 Over the last 2 weeks, how often have you been bothered by any of the following problems? 1. Little interest or pleasure in doing things: not at all 2. Feeling down, depressed, or hopeless: not at all 3. Trouble falling or staying asleep, or sleeping too much: not at all 4. Feeling tired or having little energy: not at all 5. Poor appetite or overeating: not at all 6. Feeling bad about yourself - or that you are a failure or have let yourself or your family down: not at all 7. Trouble concentrating on things, such as reading the newspaper or watching television: not at all 8. Moving or speaking so slowly that other people could have noticed. Or the opposite - being so fidgety or restless that you have been moving around a lot more than usual: not at all 9. Thoughts that you would be better off or of hurting yourself in some way: not at all Total score: 0 Depression Screening Interpretation: Negative Depression Screening Done: Yes 21084 - PHQ-9 Billing: Yes Source: Developed by Drs. Vipin Regan, Fiordaliza Garibay, Ajith Pickard and colleagues, with an educational bereket from [employer]. Thrive Questionnaire Date Thrive assessed: 06/17/23 I am a: Patient Within the past 12 months, did the food you bought not last and you didn't have the money to get more?: Never true Within the past 12 months, did you worry whether your food would run out before you got money to buy more?: Never true Do you have trouble paying for medicines?: No Do you have trouble getting transportation to medical appointments?: No Do you have trouble paying your heating and electricity bill?: No Do you have trouble taking care of your child, family member or friend?: No Do you have trouble with day-to-day activities such as bathing, preparing meals, shopping, managing finances, etc.?: No Are you currently unemployed and looking for a job?: No Are you interested in more education?: No Currently or been in a relationship where the following occur: no concerns reported THRIVE Score: 0 AUDIT C Alcohol Use Questionnaire (AUDIT-C) 1. How often do you have a drink containing alcohol?: Never 3. How often do you have six or more drinks on one occasion?: Never (0) Total Score: 0 Score Reviewed/Action Taken: No AUGUSTO-7 AMB Questionnaire AUGUSTO-7 Date AUGUSTO - 7 assessed: 06/17/23 Feeling nervous, anxious, or on edge: 0 = Not at all Not being able to stop or control worryin = Not at all Worrying too much about different things: 0 = Not at all Trouble relaxin = Not at all Being so restless that it is hard to sit still: 0 = Not at all Becoming easily annoyed or irritable: 0 = Not at all Feeling afraid as if something awful might happen: 0 = Not at all Total AUGUSTO-7 score (0-4 normal; 5-9 mild; 10-14 moderate; 15-21 severe): 0 Source: Developed by Drs. Vipin Regan, Fiordaliza Garibay, Ajith Pickard and colleagues, with an educational bereket from [employer]. AUGUSTO-7 Assessment Billing AUGUSTO-7 Assessment Tool: AUGUSTO-7 Assessment 85060 Review of Systems Const Denies poor appetite and Denies weakness Eyes Denies no additional complaints ENT Reports Normal hearing present, Denies dizziness, Denies nasal congestion, Denies tinnitus and Denies sore throat Card Denies chest pain, Denies syncope, Denies rapid heart rate and Denies dyspnea Resp Denies cough and Denies dyspnea GI Denies change in stool character, Reports constipation, Denies diarrhea, Denies nausea and Denies vomiting Denies urinary frequency, Denies difficulty voiding and Denies dysuria Neuro Reports Normal hearing present, Denies confusion, Denies dizziness, Denies syncope and Denies weakness Psych Denies confusion Physical exam (Primary Care) Vital Signs: Last Vital Signs Pulse 85 06/17/23 11:21 BP 112/78 06/17/23 11:21 Pulse Ox 100 06/17/23 11:21 Oxygen Delivery Method Room Air 06/17/23 11:21 BMI result Body Mass Index 22.8 Tobacco/Smoking Status: Tobacco use Status Tobacco use date assessed 06/17/23 06/17/23 11:23 Patient Tobacco Use Status Never used Tobacco 06/17/23 11:23 e-Cigarette/Vaping Use Never Used 06/17/23 11:23 PHQ-9: PHQ-9 Score PHQ-9: Total score 0 06/17/23 11:36 Depression Screening Interpretation: Negative Thrive Assessment: Date of Thrive Assessment Date Thrive assessed 06/17/23 06/17/23 11:23 Currently or been in a relationship where the following occur: no concerns reported Const General: No confusion Orientation/consciousness: No confusion HENMT Head: Yes normocephalic Ears: external ears normal and TM's normal bilaterally Face and sinus: Yes normal facial exam Mouth: moist mucous membranes Throat: Yes tonsils normal Eyes Conjunctivae: conjunctivae normal Pupils: Equal, round and reactive pupils present and Pupil accommodation reflex normal Direct Ophthalmoscopy: normal light reflex Neck Neck: No lymphadenopathy Thyroid: Thyroid normal Chest Chest palpation & inspection: normal inspection of the chest Resp Effort & Inspection: normal respiratory effort and no audible wheezes Auscultation: clear to auscultation bilaterally, no crackles, no wheezes and lung sounds not diminished Cardio Rate: regular rate Rhythm: regular rhythm Peripheral pulses: radial pulses present and dorsalis pedis present GI Other: Epigastric Tenderness but no guarding and no rebound. Palpation (GI): no masses Auscultation: normal bowel sounds and normoactive bowel sounds Rectal Exam - Female: deferred Skin General skin exam: no rashes or lesions noted Rashes: no rashes Neuro General: No confusion Cranial nerves: Yes Equal, round and reactive pupils present and Yes Normal hearing present Cognition (Neuro): normal cognition Gait exam (Neuro): Normal gait present Motor exam (neuro): 5/5 motor strength present throughout Deep tendon reflexes (DTR's): Right brachioradialis reflex intensity grade: 2+, Left brachioradialis reflex intensity grade: 2+, Right patellar reflex intensity grade: 2+ and Left patellar reflex intensity grade: 2+ Extrem General: No edema Assessment and Plan Assessment & Plan (1) Annual physical exam: Code(s): Z00.00 - Encounter for general adult medical examination without abnormal findings Plan: Keep well hydrated, eat healthy and keep a active (2) Epigastric abdominal pain: Code(s): R10.13 - Epigastric pain Plan: Referral to Gastroenterology as well as upper GI series. Orders: Orders [place] upper GI series Today R10.13 - Epigastric pain, R13.10 - Dysphagia, unspecified Referrals Gastroenterology Referral R10.13 - Epigastric pain Coding Level of Care Code Est Pt Prev Care 18-39y(29334) Diagnoses Annual physical exam Z00.00 Epigastric abdominal pain R10.13 Additional Codes AUGUSTO-7 Assessment Billing - AUGUSTO-7 Assessment Tool: AUGUSTO-7 Assessment 10374 ([id number])
[2023-06-17 11:21] VITALS: BP 112/78; PULSE 85; O2SAT 100; BMI 22.8
== END 2023-06-17 12:36 | disposition home or self-care (01) ==
PROVIDERS: PCP Internal Medicine; Visit Provider Internal Medicine
DX: Z00.00 Encounter for general adult medical examination without abnormal findings (principal); R10.13 Epigastric pain
CPT/HCPCS: 99395

== ENCOUNTER 2023-06-24 15:54 | Emergency (ER) | payer OTHER, SELFPAY ==
--- NOTE | ~2023-06-24 | US_ITS ---
EXAMINATION: US ABDOMEN LIMITED CLINICAL INFORMATION: Epigastric pain. COMPARISON: None available. TECHNIQUE: Real-time imaging of the right upper quadrant abdominal viscera. FINDINGS: PANCREAS: The visualized portion of the pancreas head and body are normal, portion of the pancreatic body and tail, not visualized are obscured by bowel gas. LIVER: Normal. The liver is normal in size. The liver contour is normal. Parenchymal echogenicity is normal. No focal hepatic lesion. There is no intrahepatic biliary duct dilatation seen. GALLBLADDER: Normal. The gallbladder is physiologically distended without evidence of stones, sludge, polyps, wall thickening or pericholecystic fluid. COMMON BILE DUCT: Normal in caliber measuring 0.2 cm in diameter. RIGHT KIDNEY: Normal. No hydronephrosis. No renal calculi or focal parenchymal lesions. The kidney measures 10.1 cm in maximum dimension. FREE FLUID: None. US/US abdomen limited IMPRESSION: 1. No ultrasound explanation for patient's pain symptoms. 2. No evidence of gallbladder disease or gallstones.
--- NOTE | ~2023-06-24 | CT_ITS ---
EXAMINATION: CT ABDOMEN AND PELVIS WITH CONTRAST CLINICAL INFORMATION: Abdominal pain. COMPARISON: None available. TECHNIQUE: Multidetector volumetric images were obtained from the superior aspect of the liver through the pubic symphysis following administration 85 mL of Omnipaque 350 intravenous contrast. Sagittal and coronal reformatted images were obtained on the technologist's workstation. Oral contrast: No This CT examination was performed using dose optimization techniques as appropriate, variously including the following: *Automated exposure control *Adjustment of mA and/or kV according to patient size (this includes techniques or standardized protocols for targeted exams where dose is matched to indication/reason for exam; i.e. extremities or head) *Use of iterative reconstruction technique DLP: 370 mGy-cm FINDINGS: LUNG BASES: The visualized lung bases are unremarkable. LIVER, GALLBLADDER, AND BILIARY TREE: The liver is normal in size, shape, and attenuation. No focal hepatic lesion or biliary ductal dilatation is present. The gallbladder is unremarkable with no evidence of radiopaque gallstones, gallbladder wall thickening, or obvious pericholecystic inflammatory changes. PANCREAS: Unremarkable. SPLEEN: Unremarkable. ADRENAL GLANDS: Unremarkable. KIDNEYS AND URETERS: The kidneys are normal in size, shape, and attenuation. No hydronephrosis, hydroureter, or calculi seen. No perinephric stranding. BLADDER: Unremarkable. GASTROINTESTINAL TRACT: The small and large bowel are unremarkable. The appendix is not confidently seen as a separate structure. ABDOMINAL WALL: No significant hernia is appreciated. LYMPH NODES: Normal. VASCULAR: Unremarkable. PELVIC VISCERA: Unremarkable. OSSEOUS STRUCTURES: Unremarkable. CT/CT abdomen pelvis w IV con IMPRESSION: No significant abnormality. Fleischner guidelines were followed.
[2023-06-24 16:10] VITALS: BP 152/77; PULSE 107; RESP 18; TEMP 36.1; O2SAT 100; BMI 21.0
--- NOTE | 2023-06-24 16:11 | ED.ABDPAIN ---
HPI - Abdominal Pain General Chief Complaint: Abdominal Pain Stated Complaint: Higher abd pain Time Seen by Provider: 06/25/23 01:00 Related Data Previous Rx's Medication Instructions Recorded pantoprazole 40 mg tablet,delayed 40 mg PO DAILY #14 tabs 06/25/23 release (Protonix) Allergies Allergy/AdvReac Type Severity Reaction Status Date / Time No Known Allergies Allergy Verified 06/24/23 16:13 [No Known Allergies*] PMFSH Past Medical History Medical History Left eye pain Heavy menses Pituitary adenoma Allergic rhinitis Xerostomia Vitamin D deficiency Anemia Dry mouth Dryness of eye Jaw clicking Surgical History No pertinent past surgical history Family History Family History Father CVD (cardiovascular disease) Hypertension Mother Alive and well Maternal Aunt Breast cancer Social History Social History Housing: House Alcohol intake: never Patient Tobacco Use Status: Never used Tobacco Smoked in Last 30 Days: No e-Cigarette/Vaping Use: Never Used Second Hand Smoke Exposure: No Use of substances other than those prescribed or required for medical reasons: No Advance Directives: No Advance Directives Information Provided: No Patient : No Current occupational status: employed Gender identity: Female Cognitive needs: No Hearing needs: No Vision needs: Yes Physical Exam ED Vital Signs: Vital Signs - 24 hr 06/24/23 16:10 06/24/23 22:08 06/25/23 04:02 Temperature 96.9 F 98.1 F 98 F Pulse Rate 107 H 100 87 Respiratory Rate 18 16 16 Blood Pressure 152/77 H 119/91 H 111/74 Pulse Oximetry 100 100 97 Oxygen Delivery Method Room Air Room Air Room Air BMI result Body Mass Index 21.0 Course Course Course Narrative: This is an RME: Additional HPI, ROS, PE not included below will be deferred to primary provider. This is a 33-year-old female presenting to the emergency department with complaints of epigastric pain x2 months. Patient states that the pain worsens with eating. Endorsing nausea, vomiting. No bloody vomit. Reporting loose stool. No urinary symptoms Plan: Labs, UA, EKG, ultrasound Medical Decision Making Lab Data 06/24/23 17:07 06/24/23 17:07 Labs: Lab Results 06/24/23 06/25/23 Range/Units 17:07 01:56 WBC 6.3 (4.8-10.8) X10*3/uL RBC 4.75 (4.20-5.50) X10*6/uL Hgb 12.3 (12.0-16.0) g/dl Hct 37.7 (37.0-47.0) % MCV 79.4 L (80.0-98.0) fL MCH 25.9 L (27.0-33.0) pg MCHC 32.6 (31.0-35.0) g/dl RDW 13.7 (11.0-16.0) % Plt Count 276 (160-400) X10*3/uL MPV 12.0 (9.4-12.3) fL Immature Gran % (Auto) 0.6 H (0.0-0.4) % Neut % (Auto) 53.0 (45-73) % Lymph % (Auto) 35.4 (20-40) % [place] % (Auto) 9.6 (2-11) % Eos % (Auto) 1.1 (0-4) % Baso % (Auto) 0.3 (0-2) % Lymph # (Auto) 2.2 (1.2-4.9) X10*3/uL [place] # (Auto) 0.6 (0.1-1.2) X10*3/uL Eos # (Auto) 0.1 (0.0-0.4) X10*3/uL Baso # (Auto) 0.0 (0.0-0.2) X10*3/uL Abs Immat Gran (auto) 0.04 H (0.00-0.03) X10*3/uL Absolute Neuts (auto) 3.3 (2.0-8.3) x10*3/uL Absolute Nucleated RBC 0.000 (0.0-0.012) X10*3/uL Nucleated RBC % (auto) 0.0 (0.0-0.2) /100WBC Sodium 140 (135-145) mmol/L Potassium 3.6 (3.3-5.1) mmol/L Chloride 104 (96-108) mmol/L Carbon Dioxide 25 (22-29) mmol/L Anion Gap 15 (12-20) BUN 10 (9-16) mg/dL Creatinine 0.59 (0.5-1.4) mg/dL Estim Creat Clear Calc 106.3 Estimated GFR > 60 Random Glucose 84 (60-115) mg/dL Calcium 9.6 (8.4-10.2) mg/dL Total Bilirubin 0.3 (0.0-1.0) mg/dL Direct Bilirubin 0.1 (0.0-0.5) mg/dL AST 16 (5-31) U/L ALT 13 (0-31) U/L Alkaline Phosphatase 84 (39-117) U/L Troponin I High Sens < 2.7 (<3.5-17.0) ng/L Total Protein 7.9 (6.5-8.0) g/dL Albumin 4.4 (3.5-5.0) g/dL Lipase 10 (8-78) U/L Urine Color Yellow Urine Appearance Cloudy Urine pH 6.0 (5.0-9.0) Ur Specific [place] 1.025 (1.005-1.025) Urine Protein Trace (Neg-Trace) mg/dL Urine Glucose (UA) Negative (Negative) mg/dL Urine Ketones >=160 (Negative) mg/dL Urine Blood Negative (Negative) Urine Nitrite Negative (Negative) Ur Leukocyte Esterase Small (1+) H (Negative) Urine RBC 0-2 (0-2) /HPF Urine WBC 11-20 H (0-5) /HPF Ur Squamous Epith Cells 11-20 (0-2) /HPF Urine Bacteria None Seen (None Seen) Hyaline Casts 0-2 (0-2) /LPF Urine Test NEGATIVE (NEGATIVE) Medications Administered Discontinued Medications Generic Name Dose Route Start Last Admin Trade Name Freq PRN Reason Stop Dose Admin Hydromorphone HCl 0.5 mg 06/25/23 03:09 06/25/23 03:14 Hydromorphone Hcl 0.5 Mg/0.5 Ml Syringe IVPUSH 06/25/23 03:10 0.5 mg ONCE ONE Administration Protocol Iohexol 85 ml 06/25/23 02:24 06/25/23 02:25 Iohexol 350 Mg/Ml 100 Ml Infus..Btl IV 06/25/23 02:25 85 ml ONCE ONE Administration Discharge Plan Discharge Clinical Impression: Gastritis Patient Disposition: Home, Self-Care Instructions: Gastritis (ED) Additional Instructions: Stop taking the Pepcid. Take the Protonix instead Prescriptions: New pantoprazole [Protonix] 40 mg tablet,delayed release (DR/EC) 40 mg PO DAILY Qty: 14 0RF Referrals: Po,Olamide Luther MD [Primary Care Provider] - 06/27/23
--- NOTE | 2023-06-24 16:14 | ECG_ITS ---
Test Reason : ABD PAIN Blood Pressure : / mmHG Vent. Rate : 089 BPM Atrial Rate : 089 BPM P-R Int : 160 ms QRS Dur : 064 ms QT Int : 356 ms P-R-T Axes : 060 060 062 degrees QTc Int : 433 ms Normal sinus rhythm Normal ECG When compared with ECG of 23-JAN-2023 15:05, No significant change was found Referred By: Yennifer Love Electronically Signed By:ERIKA RENAE
[2023-06-24 17:12] LABS: MANUAL DIFF FLAG NO
--- NOTE | 2023-06-24 17:15 | MHC.EDTECH ---
PATIENT BLOOD DRAWN AND SENT TO LAB ,EKG TAKEN AND WAS READ BY PROVIDER .
[2023-06-24 17:28] LABS: Alanine Aminotransferase 13 U/L (0-31); Albumin Level 4.4 g/dL (3.5-5.0); Alkaline Phosphatase 84 U/L (39-117); Anion Gap 15 (12-20); Aspartate Amino Transferase 16 U/L (5-31); Bilirubin Direct 0.1 mg/dL (0.0-0.5); Bilirubin Total 0.3 mg/dL (0.0-1.0); Blood Urea Nitrogen 10 mg/dL (9-16); Calcium 9.6 mg/dL (8.4-10.2); Carbon Dioxide 25 mmol/L (22-29); Chloride 104 mmol/L (96-108); Creatinine Clr Calc Pharmacy 106.3; Estimated Glomerular Filt Rate > 60; Glucose Random 84 mg/dL (60-115); Lipase 10 U/L (8-78); Potassium 3.6 mmol/L (3.3-5.1); Sodium 140 mmol/L (135-145); Total Protein 7.9 g/dL (6.5-8.0)
[2023-06-24 17:33] LABS: Basophils Percent Auto 0.3 % (0-2); Eosinophils Absolute Auto 0.1 X10*3/uL (0.0-0.4); Eosinophils Percent Auto 1.1 % (0-4); Hematocrit 37.7 % (37.0-47.0); Hemoglobin 12.3 g/dl (12.0-16.0); Imm Gran Abs Auto 0.04 X10*3/uL (0.00-0.03); Imm Gran Pct Auto 0.6 % (0.0-0.4); Lymphocytes Absolute Auto 2.2 X10*3/uL (1.2-4.9); Lymphocytes Percent Auto 35.4 % (20-40); Mean Corpuscular HGB Conc 32.6 g/dl (31.0-35.0); Mean Corpuscular Hemoglobin 25.9 pg (27.0-33.0); Mean Corpuscular Volume 79.4 fL (80.0-98.0); Monocytes Absolute Auto 0.6 X10*3/uL (0.1-1.2); Monocytes Percent Auto 9.6 % (2-11); Neutrophils Absolute Auto 3.3 x10*3/uL (2.0-8.3); Platelet Count 276 X10*3/uL (160-400); Red Blood Count 4.75 X10*6/uL (4.20-5.50); Red Cell Distribution Width 13.7 % (11.0-16.0); White Blood Count 6.3 X10*3/uL (4.8-10.8)
[2023-06-24 17:39] LABS: Troponin-I High Sensitivity < 2.7 ng/L (<3.5-17.0)
[2023-06-24 22:08] VITALS: BP 119/91; PULSE 100; RESP 16; TEMP 36.7; O2SAT 100
--- NOTE | 2023-06-24 22:10 | MHC.EDTECH ---
PATIENT WAS CALL BACK TO TRIAGE TO RECHECK VITALS ,VITALS IS STABLE AND PATIENT IS NOT IN ANY DISTRESS .
--- NOTE | 2023-06-25 01:29 | ED_ITS ---
HPI - Abdominal Pain General Chief Complaint: Abdominal Pain Stated Complaint: Higher abd pain Time Seen by Provider: 06/25/23 01:00 History of Present Illness HPI narrative: Patient is a 33-year-old female presents today with having abdominal pain in the epigastric area. Denies any fever chills. Had some nausea some vomiting. There was no blood. Mostly of fluids. Bowel movement has been normal. Patient thinks that the pain gets worse with eating. It has not affected by fatty foods. Denies any surgery to the abdomen. Her menstruation has been normal in timing and duration. No fever no chills. No chest pain or shortness of breath. Related Data Previous Rx's Medication Instructions Recorded pantoprazole 40 mg tablet,delayed 40 mg PO DAILY #14 tabs 06/25/23 release (Protonix) Allergies Allergy/AdvReac Type Severity Reaction Status Date / Time No Known Allergies Allergy Verified 06/24/23 16:13 [No Known Allergies*] Review of Systems Review of Systems Positive abdominal pain in the epigastric area Yes all other systems are reviewed and are negative PMFSH Past Medical History Attestation statement: The following information was validated with the patient. Medical History Left eye pain Heavy menses Pituitary adenoma Allergic rhinitis Xerostomia Vitamin D deficiency Anemia Dry mouth Dryness of eye Jaw clicking Surgical History No pertinent past surgical history Family History Family History Father CVD (cardiovascular disease) Hypertension Mother Alive and well Maternal Aunt Breast cancer Social History Social History Housing: House Alcohol intake: never Patient Tobacco Use Status: Never used Tobacco Smoked in Last 30 Days: No e-Cigarette/Vaping Use: Never Used Second Hand Smoke Exposure: No Use of substances other than those prescribed or required for medical reasons: No Advance Directives: No Advance Directives Information Provided: No Patient : No Current occupational status: employed Gender identity: Female Cognitive needs: No Hearing needs: No Vision needs: Yes Physical Exam ED Vital Signs: Vital Signs - 24 hr 06/24/23 16:10 06/24/23 22:08 06/25/23 04:02 Temperature 96.9 F 98.1 F 98 F Pulse Rate 107 H 100 87 Respiratory Rate 18 16 16 Blood Pressure 152/77 H 119/91 H 111/74 Pulse Oximetry 100 100 97 Oxygen Delivery Method Room Air Room Air Room Air BMI result Body Mass Index 21.0 Appearance: Alert. Oriented X3. No acute distress. Eyes: Pupils equal, round and reactive to light. ENT: Pharynx normal. Neck: Normal inspection. Neck supple. No lymph nodes noted. No crepitus CVS: Normal heart rate and rhythm. Pulses normal. Normal S1 and S2 Respiratory: No respiratory distress. Breath sounds normal. No Wheezing. No rales Abdomen: Soft and nontender. No rigidity. No distention. good BS x4 Skin: Skin warm and dry. Normal skin color. Normal skin turgor. Extremities: No lower extremity edema. Neurovascular intact to all extremities. No Lacerations. No Rash Neuro: Oriented X 3. No motor deficit. No sensory deficit. Moving all extermities. No slurred speech Medical Decision Making Medical Decision Making MDM Narrative: Positive abdominal pain in the epigastric area. Patient's LFTs are normal. Ultrasound showed no evidence of cholecystitis. CT scan of the abdomen showed no acute evidence of perforation obstruction abscess. Start patient on PPI. Have patient closely follow-up on an outpatient basis. Question reflux. Question gastritis. In stable condition. Patient's white count is normal hemoglobin is normal no evidence for anemia patient's electrolytes showed a normal LFT troponin is normal no evidence for ACS urine showed no gross signs of infection test was negative no related issue Differential Diagnosis Differential Diagnoses: The differential diagnosis associated with the presentation includes Gastritis cholecystitis reflux obstruction abscess UTI Admission/Observation Consideration of admission/observation: Escalation of care including admission/observation considered Lab Data [facility] Lab Attestation statement: I reviewed the patient's lab results. 06/24/23 17:07 06/24/23 17:07 Labs: Lab Results 06/24/23 06/25/23 Range/Units 17:07 01:56 WBC 6.3 (4.8-10.8) X10*3/uL RBC 4.75 (4.20-5.50) X10*6/uL Hgb 12.3 (12.0-16.0) g/dl Hct 37.7 (37.0-47.0) % MCV 79.4 L (80.0-98.0) fL MCH 25.9 L (27.0-33.0) pg MCHC 32.6 (31.0-35.0) g/dl RDW 13.7 (11.0-16.0) % Plt Count 276 (160-400) X10*3/uL MPV 12.0 (9.4-12.3) fL Immature Gran % (Auto) 0.6 H (0.0-0.4) % Neut % (Auto) 53.0 (45-73) % Lymph % (Auto) 35.4 (20-40) % [place] % (Auto) 9.6 (2-11) % Eos % (Auto) 1.1 (0-4) % Baso % (Auto) 0.3 (0-2) % Lymph # (Auto) 2.2 (1.2-4.9) X10*3/uL [place] # (Auto) 0.6 (0.1-1.2) X10*3/uL Eos # (Auto) 0.1 (0.0-0.4) X10*3/uL Baso # (Auto) 0.0 (0.0-0.2) X10*3/uL Abs Immat Gran (auto) 0.04 H (0.00-0.03) X10*3/uL Absolute Neuts (auto) 3.3 (2.0-8.3) x10*3/uL Absolute Nucleated RBC 0.000 (0.0-0.012) X10*3/uL Nucleated RBC % (auto) 0.0 (0.0-0.2) /100WBC Sodium 140 (135-145) mmol/L Potassium 3.6 (3.3-5.1) mmol/L Chloride 104 (96-108) mmol/L Carbon Dioxide 25 (22-29) mmol/L Anion Gap 15 (12-20) BUN 10 (9-16) mg/dL Creatinine 0.59 (0.5-1.4) mg/dL Estim Creat Clear Calc 106.3 Estimated GFR > 60 Random Glucose 84 (60-115) mg/dL Calcium 9.6 (8.4-10.2) mg/dL Total Bilirubin 0.3 (0.0-1.0) mg/dL Direct Bilirubin 0.1 (0.0-0.5) mg/dL AST 16 (5-31) U/L ALT 13 (0-31) U/L Alkaline Phosphatase 84 (39-117) U/L Troponin I High Sens < 2.7 (<3.5-17.0) ng/L Total Protein 7.9 (6.5-8.0) g/dL Albumin 4.4 (3.5-5.0) g/dL Lipase 10 (8-78) U/L Urine Color Yellow Urine Appearance Cloudy Urine pH 6.0 (5.0-9.0) Ur Specific [place] 1.025 (1.005-1.025) Urine Protein Trace (Neg-Trace) mg/dL Urine Glucose (UA) Negative (Negative) mg/dL Urine Ketones >=160 (Negative) mg/dL Urine Blood Negative (Negative) Urine Nitrite Negative (Negative) Ur Leukocyte Esterase Small (1+) H (Negative) Urine RBC 0-2 (0-2) /HPF Urine WBC 11-20 H (0-5) /HPF Ur Squamous Epith Cells 11-20 (0-2) /HPF Urine Bacteria None Seen (None Seen) Hyaline Casts 0-2 (0-2) /LPF Urine Test NEGATIVE (NEGATIVE) Independent Interpretation I performed an independent interpretation of an: CT Scan (Grossly negative) Radiology Impression Discussion of test interpretation with radiology: I have reviewed the radiologist's reading. Prescription Management PPI given Medications Administered Discontinued Medications Generic Name Dose Route Start Last Admin Trade Name Santosq PRN Reason Stop Dose Admin Hydromorphone HCl 0.5 mg 06/25/23 03:09 06/25/23 03:14 Hydromorphone Hcl 0.5 Mg/0.5 Ml Syringe IVPUSH 06/25/23 03:10 0.5 mg ONCE ONE Administration Protocol Iohexol 85 ml 06/25/23 02:24 06/25/23 02:25 Iohexol 350 Mg/Ml 100 Ml Infus..Btl IV 06/25/23 02:25 85 ml ONCE ONE Administration Discharge Plan Discharge Clinical Impression: Gastritis Patient Disposition: Home, Self-Care Instructions: Gastritis (ED) Additional Instructions: Stop taking the Pepcid. Take the Protonix instead Prescriptions: New pantoprazole [Protonix] 40 mg tablet,delayed release (DR/EC) 40 mg PO DAILY Qty: 14 0RF Referrals: Po,Olamide Luther MD [Primary Care Provider] - 06/27/23
--- NOTE | 2023-06-25 02:07 | PC.NURSE ---
pt is a&o, reports having chronic abd pain, for month, has a consult with GI In august she believes, no n/v, no abd guarding.
[2023-06-25 02:12] LABS: Appearance Urine Cloudy; Color Urine Yellow; Glucose Urine UA Negative (Negative); Leukocyte Esterase Urine Small (1+) (Negative); Nitrite Urine Negative (Negative); Specific Gravity - Urine 1.025 (1.005-1.025); UMIC TRIGGER UACC YES; Urine Blood Negative (Negative); Urine Ketones >=160 mg/dL (Negative); Urine Protein Trace mg/dL (Neg-Trace)
[2023-06-25 02:13] LABS: UPreg QC Valid YES; Urine Pregnancy NEGATIVE (NEGATIVE)
[2023-06-25 02:14] LABS: Bacteria Urine None Seen (None Seen); Hyaline Casts Urine 0-2 /LPF (0-2); RBC Urine 0-2 /HPF (0-2); UACC Culture Trigger YES
[2023-06-25] MEDS: iohexoL 350 MG/ML 100 ML INFUS..BTL 85 ML IV (02:25)
[2023-06-25] MEDS: HYDROmorphone HCl 0.5 MG/0.5 ML SYRINGE IVPUSH (03:14)
--- NOTE | 2023-06-25 03:41 | PC.NURSE ---
pt pain has improved after being medicated. pt is resting in bed.
[2023-06-25 04:02] VITALS: BP 111/74; PULSE 87; RESP 16; TEMP 36.6; O2SAT 97
--- NOTE | 2023-06-25 04:33 | PC.NURSE ---
Reviewed discharge instructions with pt, pt verbalized understanding, Iv removed.
[2023-06-25 04:36] VITALS: BP 115/75; PULSE 86; RESP 20; TEMP 36.6; O2SAT 98
== END 2023-06-25 04:37 | disposition home or self-care (01) ==
PROVIDERS: Physician Assistant Medical; Emergency Provider Emergency Medicine Emergency Medical Services; PCP Internal Medicine
DX: K29.70 Gastritis, unspecified, without bleeding (principal); R10.13 Epigastric pain; R11.2 Nausea with vomiting, unspecified; Z79.899 Other long term (current) drug therapy
CPT/HCPCS: 36415; 74177; 76705; 80048; 80076; 81001; 81025; 83690; 84484; 85025; 87086; 93005; 96374; 99284; 99285; J1170; Q9967

== ENCOUNTER → 2023-06-24 16:14 | Outpatient (BNV) | payer OTHER, SELFPAY | PROVIDERS: Emergency Provider Emergency Medicine Emergency Medical Services; PCP Internal Medicine; Visit Provider Internal Medicine | DX: R10.9 Unspecified abdominal pain (principal) | CPT/HCPCS: 93010 ==

== ENCOUNTER → 2023-07-28 12:13 | Outpatient (BNVA) | payer OTHER, SELFPAY | PROVIDERS: PCP Internal Medicine; Visit Provider Physician Assistant | DX: R10.13 Epigastric pain (principal); K59.00 Constipation, unspecified | CPT/HCPCS: 99202 ==

== ENCOUNTER 2023-07-28 12:14 | Outpatient (AMB) | payer OTHER, SELFPAY ==
--- NOTE | 2023-07-28 12:30 | MHC.OFFVIS ---
Vital Signs 07/28/23 12:32 Height 4 ft 11 in Weight 107 lb BMI 21.6 BP 106/66 Blood Pressure Location Lt brachial Position Sitting Pulse 110 H Intake Visit Reasons: epigastric pain Intake Note: Patient new consult for Epigastric pain. Patient cc: Epigastric pain with some bloating on and off, acid reflex with burning sensation, constipation and no appetite. Foreign Languages Department Chair Required: No Accompanied by: Self / Same As Patient Allergies No Known Allergies [No Known Allergies*] Allergy (Verified 07/28/23 12:29) Medication List - Last Reconciled 07/28/23 by Ashley Davis PA-C pantoprazole (Protonix) 40 mg PO DAILY HPI Comments Details: A 33 y/o female with epigastric pain since April-went to - heartburn- bloating-pantoprazole - took for 1 month- then went to ER- put her back on ppi- for gastritis notes most discomfort at night- she has lost wt- she works FT, 2 kids no tob, etoh She has no nausea, vomiting hematemesis, hematochezia fever or chills PFSH Medical History Left eye pain Heavy menses Pituitary adenoma Allergic rhinitis Xerostomia Vitamin D deficiency Anemia Dry mouth Dryness of eye Jaw clicking Surgical History No pertinent past surgical history Family History Father CVD (cardiovascular disease) Hypertension Mother Alive and well Maternal Aunt Breast cancer Social History Housing: House Alcohol intake: never Patient Tobacco Use Status: Never used Tobacco e-Cigarette/Vaping Use: Never Used Second Hand Smoke Exposure: No Current occupational status: employed Gender identity: Female Cognitive needs: No Hearing needs: No Vision needs: Yes Female Reproductive History Menstrual Age of Menarche: 11 Review of Systems Const All systems reviewed & are unremarkable except as noted in HPI and below Card Denies chest pain and Denies dyspnea Resp Denies dyspnea GI Denies abdominal pain, Reports hematochezia, Reports constipation, Reports heartburn, Denies nausea and Denies vomiting Physical Exam Vital Signs: Last Vital Signs Pulse 110 H 07/28/23 12:32 BP 106/66 07/28/23 12:32 BMI result Body Mass Index 21.6 Const General: cooperative, healthy appearing, comfortable and well groomed Orientation/consciousness: patient oriented x3 Limitations: no limitations Eyes Sclerae: sclerae normal Resp Effort & Inspection: normal respiratory effort and able to speak in complete sentences Auscultation: clear to auscultation bilaterally, no rales, no rhonchi and no wheezes Cardio Rate: regular rate Rhythm: regular rhythm Heart sounds: S1 normal heart sound present and S2 normal heart sound present GI Palpation (GI): Soft to palpation, Tenderness to palpation present (GI) (mild luq) in the LUQ and no guarding Auscultation: normal bowel sounds Skin General skin exam: no rashes or lesions noted Neuro General: patient oriented x3 Extrem General: Yes full ROM Psych Appearance: grossly normal Mental Status: mental status grossly normal Speech and movement: Normal speech and movement present and Clear speech present Affect: normal affect Attitude: cooperative Thought process: Normal thought process present Thought content: Normal thought content present Insight: Good insight present (Psych) Judgement: Good judgement present (Psych) Results Reviewed Results Reviewed: 06/25/23- CT CT/CT abdomen pelvis w IV con IMPRESSION: No significant abnormality. U/S- 06/23- no findings- Assessment & Plan Assessment & Plan (1) Epigastric abdominal pain: Comment: Mild intermittent, Code(s): R10.13 - Epigastric pain Category: Medical Plan: Reveal ultrasound and CT (2) Constipation: Comment: Manages Code(s): K59.00 - Constipation, unspecified Category: Medical Plan: Maintain high-fiber diet Plan d/c pantoprazole x 2 wks HP stool antigen in 2 wks if positive will tx Orders: Orders H pylori Ag Stool 2 Weeks A04.8 - Other specified bacterial intestinal infections Medications: New sucralfate 1 g (10 mL) PO QIDACHS 420 mL 0RF 4 weeks Patient Instructions: Discontinue pantoprazole x2 weeks She may take Carafate in the interim H pylori stool antigen in 2 weeks to order placed If positive will treat Will see her back in follow-up for progress Encouraged to call questions or concerns
[2023-07-28 12:32] VITALS: BP 106/66; PULSE 110; BMI 21.6
== END 2023-07-28 13:01 | disposition home or self-care (01) ==
PROVIDERS: PCP Internal Medicine; Visit Provider Physician Assistant
DX: R10.13 Epigastric pain (principal); K59.00 Constipation, unspecified
CPT/HCPCS: 99203

== ENCOUNTER 2023-08-07 15:07 | Outpatient (REF) | payer OTHER, SELFPAY | END 2023-08-07 15:08 | disposition home or self-care (01) | LOC: HO.LNP 15:07 | PROVIDERS: PCP Internal Medicine; Visit Provider Advanced Practice Midwife | DX: Z01.419 Encounter for gynecological examination (general) (routine) without abnormal findings (principal) | CPT/HCPCS: 99395 ==

== ENCOUNTER 2023-08-07 15:07 | Outpatient (AMB) | payer OTHER, SELFPAY ==
--- NOTE | 2023-08-07 15:13 | MHC.OFFVIS ---
Vital Signs 08/07/23 15:14 Height 4 ft 11 in Weight 108 lb BMI 21.8 BP 94/60 Intake Visit Reasons: Physical Beauty Parlor Cleaner: Beauty Parlor Cleaner Present (Esther) Allergies No Known Allergies [No Known Allergies*] Allergy (Verified 08/07/23 15:14) Is last menstrual period known: Yes Last menstrual period: 07/09/23 HPI Comments Details: She is a premenopausal woman presenting for annual examination. Doing well with concerns: History of pituitary adenoma with the irregular menses. Can skip a few months at a time. No nipple discharge. Seen Neuro in the past, she reports there was no concerns. Occasional pelvic pain reported She tries to eat healthy and stays active with exercise w/walking. Currently is sexually active partner has a vasectomy. She denies vaginal itching and irritation. STI screening offered; she accepts. Denies family history of breast, ovarian or colon cancer. Last pap smear 2021, negative. [facility] Medical History Left eye pain Heavy menses Pituitary adenoma Allergic rhinitis Xerostomia Vitamin D deficiency Anemia Dry mouth Dryness of eye Jaw clicking Surgical History No pertinent past surgical history Family History Father CVD (cardiovascular disease) Hypertension Mother Alive and well Maternal Aunt Breast cancer Social History Housing: House Alcohol intake: never Patient Tobacco Use Status: Never used Tobacco e-Cigarette/Vaping Use: Never Used Second Hand Smoke Exposure: No Current occupational status: employed Gender identity: Female Cognitive needs: No Hearing needs: No Vision needs: Yes Female Reproductive History Menstrual Age of Menarche: 11 Date of last menstrual period: 07/09/23 control method: other (vasectomy) Total pregnancies: 2 Full term: 2 Number of Living Children: 2 Date of last pap smear: 08/03/21 (neg pap and hpv) Review of Systems Const All systems reviewed & are unremarkable except as noted in HPI and below Reports as per HPI Eyes Reports no additional complaints ENT Reports no additional complaints Card Reports no additional complaints Resp Reports no additional complaints GI Reports as per HPI and Reports no additional complaints Reports as per HPI Musc Reports no additional complaints Skin/Breast Reports as per HPI Neuro Reports no additional complaints Psych Reports no additional complaints Endo Reports no additional complaints Rafa/Lymph Reports no additional complaints Aller/Immun Reports no additional complaints Physical Exam Vital Signs: Last Vital Signs BP 94/60 08/07/23 15:14 BMI result Body Mass Index 21.8 Const General: cooperative, healthy appearing, no acute distress, well developed and alert Orientation/consciousness: patient oriented x3 HEENT Head: Yes normal to inspection Eyes General: appearance normal, both eyes and all related structures Neck Neck: Yes normal visual inspection Thyroid: Thyroid normal Chest Chest palpation & inspection: normal inspection of the chest and other (no puckering, dimpling, peau de orange, retraction, discharge, masses) Breast/axilla inspection: normal inspection of the breasts Breast/axilla palpation: normal palpation of the breasts Resp Effort & Inspection: normal respiratory effort GI Inspection: Yes normal to inspection Palpation (GI): Soft to palpation Rectal Exam - Female: deferred General: Yes bladder normal to palpation External Female Exam: normal external appearance and normal appearance of the urethra Speculum Exam - Vagina: normal appearance of the vagina, normal palpation and normal vaginal discharge Speculum Exam - Cervix: normal appearance of the cervix and normal palpation Bimanual exam- vagina & uterus: normal bimanual exam, normal palpation, uterine size normal, bladder normal to palpation, normal palpation and non-tender Bimanual Exam- Adnexa, other: no masses and Other (Right-sided fullness ) Skin General skin exam: no rashes or lesions noted Rashes: no rashes Neuro General: patient oriented x3 Cognition (Neuro): normal cognition Extrem General: Yes normal to inspection Psych Attitude: cooperative Thought process: Normal thought process present Assessment & Plan Assessment & Plan (1) Well woman exam with routine gynecological exam: Code(s): Z01.419 - Encounter for gynecological examination (general) (routine) without abnormal findings Category: Medical Plan: Discussed: Current recommendations for pap smears per ASCCP guidelines. Breast awareness and periodic breast exams. Maintain a healthy lifestyle including a well balanced diet and routine exercise. Workup for pelvic pain and irregular periods to include labs ultrasound then patient to return to the office for a follow up discussion in person. Patient verbalizes understanding and agrees to the plan of care. She was given opportunity to ask questions and all questions were answered to the best of my ability. RTO in one year for annual cnc machine setter examination. This note is constructed using voice recognition software. While every effort has been made to ensure accuracy, fretted string instrument repairer errors may have been included. Orders: Orders US pelvic and transvaginal Today R10.2 - Pelvic and perineal pain CT NG by PCR Today Z20.2 - Contact with and (suspected) exposure to infections with a predominantly sexual mode of transmission Thyroid Stimulating Hormone Today N92.0 - Excessive and frequent menstruation with regular cycle Prolactin Today N92.6 - Irregular menstruation, unspecified Coding Level of Care Code Est Pt Prev Care 18-39y(50227) Diagnoses Well woman exam with routine gynecological exam Z01.419
[2023-08-07 15:14] VITALS: BP 94/60; BMI 21.8
== END 2023-08-07 15:46 | disposition home or self-care (01) ==
PROVIDERS: PCP Internal Medicine; Visit Provider Advanced Practice Midwife
DX: Z01.419 Encounter for gynecological examination (general) (routine) without abnormal findings (principal)
CPT/HCPCS: 99395

== ENCOUNTER 2023-08-07 18:27 | Outpatient (REF) | payer OTHER, SELFPAY ==
[2023-08-08 20:08] LABS: CT PCR NOT DETECTED (Not Detect.); NG PCR NOT DETECTED (Not Detect.)
== END 2023-08-07 18:28 | disposition home or self-care (01) ==
LOC: HO.LNP 18:27
PROVIDERS: Visit Provider Advanced Practice Midwife
DX: Z20.2 Contact with and (suspected) exposure to infections with a predominantly sexual mode of transmission (principal)
CPT/HCPCS: 0353U

== ENCOUNTER 2023-08-15 07:46 | Outpatient (REF) | payer OTHER, SELFPAY | END 2023-08-15 07:47 | disposition home or self-care (01) | LOC: HO.LNP 07:46 | PROVIDERS: Visit Provider Physician Assistant | DX: A04.8 Other specified bacterial intestinal infections (principal) | CPT/HCPCS: 87338 ==

== ENCOUNTER 2023-08-15 15:11 | Outpatient (REF) | payer OTHER, SELFPAY ==
--- NOTE | ~2023-08-15 | US_ITS ---
EXAMINATION: US PELVIS COMPLETE CLINICAL INFORMATION: Pelvic pain COMPARISON: None TECHNIQUE: Transabdominal and transvaginal imaging was performed. FINDINGS: The uterus is of normal size and echogenicity measuring 8.9 x 4.8 x 5.6 cm. A regular homogeneous endometrium is identified measuring 1.3 cm. Nabothian cysts in the cervix. Cystic changes noted within the endometrium which could be seen in the setting of chronic anovulation. Both ovaries are of normal size and echogenicity. The right measures 2.6 x 1.8 x 2.0 cm for a volume of 5 mL. The left measures 3.2 x 2.0 x 2.3 cm for a volume of 7.5 mL. There is no pelvic free fluid. US/US pelvic and transvaginal IMPRESSION: Cystic changes noted within the endometrium which could be seen in the setting of chronic anovulation. Otherwise unremarkable pelvic ultrasound.
== END 2023-08-15 15:12 | disposition home or self-care (01) ==
LOC: HO.US 15:11
PROVIDERS: PCP Internal Medicine; Visit Provider Advanced Practice Midwife
DX: R10.2 Pelvic and perineal pain (principal)
CPT/HCPCS: 76830; 76856

== ENCOUNTER → 2023-09-02 13:11 | Outpatient (BNVA) | payer OTHER, SELFPAY | PROVIDERS: PCP Internal Medicine; Visit Provider Physician Assistant Medical | DX: S16.1XXA Strain of muscle, fascia and tendon at neck level, initial encounter (principal); S46.811A Strain of other muscles, fascia and tendons at shoulder and upper arm level, right arm, initial encounter; X50.1XXA Overexertion from prolonged static or awkward postures, initial encounter | CPT/HCPCS: 99203 ==

== ENCOUNTER → 2023-09-05 09:16 | Outpatient (BNVA) | payer OTHER, SELFPAY | PROVIDERS: PCP Internal Medicine; Visit Provider Physician Assistant | DX: S16.1XXA Strain of muscle, fascia and tendon at neck level, initial encounter (principal); S46.811A Strain of other muscles, fascia and tendons at shoulder and upper arm level, right arm, initial encounter; X50.1XXA Overexertion from prolonged static or awkward postures, initial encounter | CPT/HCPCS: 99213 ==

== ENCOUNTER 2023-09-26 06:39 | Outpatient (REF) | payer OTHER, SELFPAY ==
[2023-09-26 07:34] LABS: Thyroid Stimulating Hormone 0.97 uIU/mL (0.32-4.0)
[2023-09-27 08:08] LABS: Prolactin 12.5 ng/mL
== END 2023-09-26 06:40 | disposition home or self-care (01) ==
LOC: HO.LAB 06:39
PROVIDERS: PCP Internal Medicine; Visit Provider Advanced Practice Midwife
DX: N92.1 Excessive and frequent menstruation with irregular cycle (principal); N97.0 Female infertility associated with anovulation; Z71.2 Person consulting for explanation of examination or test findings
CPT/HCPCS: 36415; 84146; 84443; 99212

== ENCOUNTER 2023-09-26 13:30 | Outpatient (AMB) | payer OTHER, SELFPAY ==
[2023-09-26 13:38] VITALS: BMI 21.4
--- NOTE | 2023-09-26 13:38 | A.OFFVIS_ITS ---
Vital Signs 09/26/23 13:38 Height 4 ft 11 in Weight 105 lb 13.15 oz BMI 21.4 Intake Visit Reasons: Ultrasound follow up Fireworks Display Specialist Required: No Information Interpreted: non-clinical & clinical Assistant Winemaker: Assistant Winemaker Present Accompanied by: Self / Same As Patient Allergies No Known Allergies [No Known Allergies*] Allergy (Verified 09/26/23 13:40) Is last menstrual period known: Yes HPI Comments Details: Patient is here today for a follow up ultrasound results. She has a history of anovulatory cycles due to a pituitary adenoma monitored by her neurologist. History of vasectomy with her partner no concerns for . [facility] Medical History Left eye pain Heavy menses Pituitary adenoma Allergic rhinitis Xerostomia Vitamin D deficiency Anemia Dry mouth Dryness of eye Jaw clicking Surgical History No pertinent past surgical history Family History Father CVD (cardiovascular disease) Hypertension Mother Alive and well Maternal Aunt Breast cancer Social History Housing: House Alcohol intake: never Patient Tobacco Use Status: Never used Tobacco e-Cigarette/Vaping Use: Never Used Second Hand Smoke Exposure: No Current occupational status: employed Gender identity: Female Cognitive needs: No Hearing needs: No Vision needs: Yes Female Reproductive History Menstrual Age of Menarche: 11 Date of menopause: 09/08/23 Review of Systems Const All systems reviewed & are unremarkable except as noted in HPI and below Endo Reports no additional complaints Physical Exam Vital Signs: BMI result Body Mass Index 21.4 Const General: cooperative, healthy appearing and no acute distress Psych Appearance: well kempt Attitude: cooperative Thought process: Normal thought process present Results Reviewed Results Reviewed: [address] [address] Ultrasound Report Signed Patient: Sandra Dale MR#: [id number] : 1990 Acct:[id number] Age/Sex: 33 / F ADM Date: 08/15/23 Loc: HO. Attending Dr: Makayla Bryan CNM Ordering Physician: Makayla Bryan CNM Date of Service: 08/15/23 Procedure(s): US pelvic and transvaginal Accession Number(s): [id number] cc: Makayla Bryan CNM; Olamide Rodriguez MD~ EXAMINATION: US PELVIS COMPLETE CLINICAL INFORMATION: Pelvic pain COMPARISON: None TECHNIQUE: Transabdominal and transvaginal imaging was performed. FINDINGS: The uterus is of normal size and echogenicity measuring 8.9 x 4.8 x 5.6 cm. A regular homogeneous endometrium is identified measuring 1.3 cm. Nabothian cysts in the cervix. Cystic changes noted within the endometrium which could be seen in the setting of chronic anovulation. Both ovaries are of normal size and echogenicity. The right measures 2.6 x 1.8 x 2.0 cm for a volume of 5 mL. The left measures 3.2 x 2.0 x 2.3 cm for a volume of 7.5 mL. There is no pelvic free fluid. US/US pelvic and transvaginal IMPRESSION: Cystic changes noted within the endometrium which could be seen in the setting of chronic anovulation. Otherwise unremarkable pelvic ultrasound. Dictated By: Sandee Borja MD Signed By: <Electronically signed by Sandee Borja MD in OV> 08/21/23 1851 DD/ 1552 TD/TT: Straw Hat Brim Raiser Operator: Assessment & Plan Assessment & Plan (1) Anovulatory cycle: Code(s): N97.0 - Female infertility associated with anovulation (2) Encounter to discuss test results: Code(s): Z71.2 - Person consulting for explanation of examination or test findings Plan Discussed: Ultrasound findings including thickened endometrial lining and cystic changes. Advised endometrial sampling cab the option of an EMB in the office or a hysteroscopy. Anticipatory guidance for both reviewed patient prefers to have the EMB in office procedure. Preprocedure planning to include eating and drinking and taking 2 Advil 1 hour before her appointment. Reason for an EMB explained to patient. Patient will be scheduled for EMB appointment. All of her questions and concerns were addressed to the best of my ability and shared decision making. She is agreeable to the plan of care. This note is constructed using voice recognition software. While every effort has been made to ensure accuracy, slot host errors may have been included. Coding Level of Care Code Est Pt Level 3 (74309) Diagnoses Anovulatory cycle N97.0 Encounter to discuss test results Z71.2
== END 2023-09-26 13:54 | disposition home or self-care (01) ==
LOC: HO.HWS 13:30
PROVIDERS: PCP Internal Medicine; Visit Provider Advanced Practice Midwife
DX: N97.0 Female infertility associated with anovulation (principal); Z71.2 Person consulting for explanation of examination or test findings
CPT/HCPCS: 99213

== ENCOUNTER 2023-10-02 15:39 | Outpatient (AMB) | payer OTHER, SELFPAY ==
[2023-10-02 15:44] VITALS: BP 102/66; PULSE 74; BMI 21.4
--- NOTE | 2023-10-02 15:44 | MHC.PC.OV ---
Vital Signs 10/02/23 15:44 Height 4 ft 11 in Weight 106 lb 0.4 oz BMI 21.4 BP 102/66 Blood Pressure Location Lt brachial Position Sitting Pulse 74 Pulse Source Pulse Oximeter Oxygen Delivery Method Room Air Intake Visit Reasons: gerd epigastric pain Allergies No Known Allergies [No Known Allergies*] Allergy (Verified 10/02/23 15:44) Tobacco use date assessed: 10/02/23 Dental Screening Dental Screen Date: 06/17/23 HPI gerd epigastric pain HPI Details 33-year-old female with a history of pituitary adenoma constipation coming in for an epigastric abdominal pain follow-up. Last seen in 06/25/2023 and was referred to Gastroenterology. Review of the notes has seen Gynecology 09/26/2023 for pelvic pain and was advised to have an ultrasound done showing chronic anovulation cystic changes. Patient was advised endometrial sampling/hysteroscopy. Patient did see gastroenterology in July for the epigastric pain discontinued pantoprazole and was advised to get the H pylori test. Which came up as negative. Patient has epigastric pain just spontaneously resolved and now is not on any medication. As for the endometrial thickening procedure to be done in October. Patient does have constipation and takes jglr-wew-hqdaqnb medication which resolved the problem. Otherwise no other complaints [facility] Medical History Left eye pain Heavy menses Pituitary adenoma Allergic rhinitis Xerostomia Vitamin D deficiency Anemia Dry mouth Dryness of eye Jaw clicking Surgical History No pertinent past surgical history Family History Father CVD (cardiovascular disease) Hypertension Mother Alive and well Maternal Aunt Breast cancer Social History Housing: House Alcohol intake: never Patient Tobacco Use Status: Never used Tobacco e-Cigarette/Vaping Use: Never Used Second Hand Smoke Exposure: No Current occupational status: employed Gender identity: Female Cognitive needs: No Hearing needs: No Vision needs: Yes Female Reproductive History Menstrual Age of Menarche: 11 Date of menopause: 09/08/23 Questionnaire Thrive Questionnaire Date Thrive assessed: 06/17/23 AUDIT C Alcohol Use Questionnaire (AUDIT-C) 1. How often do you have a drink containing alcohol?: Never 3. How often do you have six or more drinks on one occasion?: Never (0) Total Score: 0 Score Reviewed/Action Taken: No AUGUSTO-7 AMB Questionnaire AUGUSTO-7 Date AUGUSTO - 7 assessed: 06/17/23 Source: Developed by Drs. Vipin Regan, Fiordaliza Garibay, Ajith Pickard and colleagues, with an educational bereket from [employer]. Physical exam (Primary Care) Vital Signs: Last Vital Signs Pulse 74 10/02/23 15:44 BP 102/66 10/02/23 15:44 Oxygen Delivery Method Room Air 10/02/23 15:44 BMI result Body Mass Index 21.4 Tobacco/Smoking Status: Tobacco use Status Tobacco use date assessed 10/02/23 10/02/23 15:45 Patient Tobacco Use Status Never used Tobacco 10/02/23 15:45 e-Cigarette/Vaping Use Never Used 10/02/23 15:45 Thrive Assessment: Date of Thrive Assessment Date Thrive assessed 06/17/23 10/02/23 15:45 Const General: alert; No acute distress Eyes Conjunctivae: conjunctivae normal Resp Auscultation: clear to auscultation bilaterally Cardio Rate: regular rate Rhythm: regular rhythm GI Inspection: Yes normal to inspection Extrem General: Yes normal to inspection and No edema Assessment and Plan Assessment & Plan (1) Epigastric abdominal pain: Comment: Mild intermittent, Code(s): R10.13 - Epigastric pain Plan: resolved with no medication (2) Endometrial thickening on ultrasound: Code(s): R93.89 - Abnormal findings on diagnostic imaging of other specified body structures Plan: patient will have a gynecological procedure October (3) Constipation: Comment: Manages Code(s): K59.00 - Constipation, unspecified Plan: Three rules for constipation 1. Diet need to have a high fiber diet less of meat 2. Increase oral fluids 3. Exercise patient does take crrj-lig-cgbljki medication to help Medications: Discontinued pantoprazole (Protonix) Discontinued Reason: Doctor's Order 40 mg PO DAILY 14 tabs 0RF sucralfate Discontinued Reason: Change Referral Type 1 g (10 mL) PO QIDACHS 4 weeks 420 mL 0RF cyclobenzaprine can take a second dose to 10mg three times a day Discontinued Reason: Doctor's Order 5 mg PO TID PRN 25 tabs 0RF muscle spasm Coding Level of Care Code Est Pt Level 4 (92288) Diagnoses Epigastric abdominal pain R10.13 Endometrial thickening on ultrasound R93.89 Constipation K59.00
== END 2023-10-02 17:00 | disposition home or self-care (01) ==
PROVIDERS: PCP Internal Medicine; Visit Provider Internal Medicine
DX: R10.13 Epigastric pain (principal); R93.89 Abnormal findings on diagnostic imaging of other specified body structures; K59.00 Constipation, unspecified
CPT/HCPCS: 99214

== ENCOUNTER 2023-10-21 10:17 | Outpatient (AMB) | payer OTHER, SELFPAY ==
--- NOTE | 2023-10-21 10:26 | MHC.OFFVIS ---
Vital Signs 10/21/23 10:27 Height 4 ft 11 in Weight 106 lb BMI 21.4 BP 90/66 Intake Visit Reasons: EMB/30 mins Certified Neurodiagnostic Technologist: Certified Neurodiagnostic Technologist Present (Esther) Accompanied by: Spouse Allergies No Known Allergies [No Known Allergies*] Allergy (Verified 10/21/23 10:27) Is last menstrual period known: Yes Last menstrual period: 10/15/23 HPI Comments Details: Patient is here today with her partner Parish for an endometrial biopsy due to abnormal uterine bleeding. She has a history of chronic anovulatory cycles due to a pituitary adenoma. She reports at times her menstruation can be irregular. She reports her LMP was October 14 through October 19, some residual spotting today. Patient had coffee this morning and did not eat prior to the procedure. [facility] Medical History Left eye pain Heavy menses Pituitary adenoma Allergic rhinitis Xerostomia Vitamin D deficiency Anemia Dry mouth Dryness of eye Jaw clicking Surgical History No pertinent past surgical history Family History Father CVD (cardiovascular disease) Hypertension Mother Alive and well Maternal Aunt Breast cancer Social History Housing: House Alcohol intake: never Patient Tobacco Use Status: Never used Tobacco e-Cigarette/Vaping Use: Never Used Second Hand Smoke Exposure: No Current occupational status: employed Gender identity: Female Cognitive needs: No Hearing needs: No Vision needs: Yes Female Reproductive History Menstrual Age of Menarche: 11 Date of last menstrual period: 10/15/23 Date of menopause: 09/08/23 Review of Systems Const All systems reviewed & are unremarkable except as noted in HPI and below Physical Exam Vital Signs: Last Vital Signs BP 90/66 10/21/23 10:27 BMI result Body Mass Index 21.4 Const General: cooperative, healthy appearing and no acute distress Orientation/consciousness: patient oriented x3 GI Inspection: Yes normal to inspection Palpation (GI): Soft to palpation and Other GI palpation findings present (Nontender) Rectal Exam - Female: visual inspection normal General: Yes bladder normal to palpation External Female Exam: normal appearance of the urethra Speculum Exam - Vagina: normal appearance of the vagina, normal palpation, normal vaginal discharge and vaginal bleeding (blood posterior vagina) Speculum Exam - Cervix: normal appearance of the cervix and normal palpation Bimanual exam- vagina & uterus: normal bimanual exam, normal palpation, uterine size normal, bladder normal to palpation, normal palpation, uterine shape normal and non-tender Bimanual Exam- Adnexa, other: normal adnexae OB/external & speculum: vaginal bleeding (blood posterior vagina) Neuro General: patient oriented x3 Office Procedures Endometrial Biopsy Details: The patient is here today for an endometrial biopsy due to AUB to rule out any pathology including atypical, hyperplasia or cancer cells of the uterus. She was counseled regarding anticipatory guidance for the procedure including the risks for pain, infection, bleeding, perforation, potential injury to the tissues may include the cervix, uterus, tubes, bladder and bowels. These injuries may include further treatment and evaluation including surgery, blood transfusions, antibiotics, hospitalizations and anesthesia. Permanent injury and scarring can occur. She was consented for the procedure, and the consent forms were signed. She is agreeable to have the procedure today. All questions were answered. Endometrial Biopsy Procedure: The patient was placed in the dorsal lithotomy position and a sterile speculum inserted. Using aseptic technique for the procedure. The cervix was cleansed with Betadine x 3 swabs. A single toothed tenaculum was placed on the cervix for stabilization and the uterus was sounded to 7 cm with a 4mm pipelle, and tissue sample obtained. Minimal bleeding was observed. The tissue sample was placed in formalin in a patient labeled container by staff assisting and sent to the pathology department for processing and interpretation. The patient tolerate the procedure well, while getting ready to leave she felt lightheaded, she was placed resting on the procedure bed and was given fluids, and her partner gave her some food and juice from our cafeteria and after several minutes felt well and was in good condition when leaving the department accompanied by her partner. Endometrial Biopsy Post Procedure Care: Nothing in the vagina including: tampons, douching or intimacy until all the bleeding has subsided. There may be some post procedure bleeding for several days, this bleeding is usually light and may turn to a light brown or pink color. Mild cramps may occurs. Nothing in the vaginal including: tampons, douching, or intimacy until all the bleeding has subsided. You may take an over the counter mild analgesic such as Tylenol or Advil (if no allergies) per the manufactures recommendation on dosing, frequency, and follow the directions completely. Call the office if any: fever (over 100.4), flu like symptoms, abdominal pain (worse than cramping), foul smelling, infected appearing vaginal discharge, or heavy bleeding. If indicated: Use condoms to prevent and STI's, and only after the bleeding has stopped completely. Return to the office in 2 weeks for results and plan of care. This note is constructed using voice recognition software. While every effort has been made to ensure accuracy, side panel padder errors may have been included. [id number] Biopsy Results AMB Test Urine AMB Test Urine Negative Last Edit by ENOC Brizuela on 10/21/23 10:36 Results Reviewed Results Reviewed: Laboratory Last Values [facility] Negative 10/21/23 10:36 Assessment & Plan Assessment & Plan (1) Endometrial thickening on ultrasound: Code(s): R93.89 - Abnormal findings on diagnostic imaging of other specified body structures Category: Medical (2) Abnormal uterine bleeding: Code(s): N93.9 - Abnormal uterine and vaginal bleeding, unspecified Plan See procedure note Orders: Orders AMB HCG Urine Test Today R93.89 - Abnormal findings on diagnostic imaging of other specified body structures, Z32.02 - Encounter for test, result negative Surgical Today N93.9 - Abnormal uterine and vaginal bleeding, unspecified Coding Level of Care Code Procedure Only Diagnoses Endometrial thickening on ultrasound R93.89 Abnormal uterine bleeding N93.9 CPT Codes Endometrial Biopsy - CPT: 32633-[id number] Biopsy ([id number])
[2023-10-21 10:27] VITALS: BP 90/66; BMI 21.4
== END 2023-10-21 11:24 | disposition home or self-care (01) ==
PROVIDERS: PCP Internal Medicine; Visit Provider Advanced Practice Midwife
DX: R93.89 Abnormal findings on diagnostic imaging of other specified body structures (principal); N93.9 Abnormal uterine and vaginal bleeding, unspecified; Z32.02 Encounter for pregnancy test, result negative
CPT/HCPCS: 58100

== ENCOUNTER 2023-10-21 10:17 | Outpatient (REF) | payer OTHER, SELFPAY | END 2023-10-21 10:18 | disposition home or self-care (01) | LOC: HO.LAB 10:17 | PROVIDERS: PCP Internal Medicine; Visit Provider Advanced Practice Midwife | DX: N93.9 Abnormal uterine and vaginal bleeding, unspecified (principal); R93.89 Abnormal findings on diagnostic imaging of other specified body structures; Z32.02 Encounter for pregnancy test, result negative | CPT/HCPCS: 58100; 81025; 88305 ==

== ENCOUNTER 2023-11-12 15:24 | Outpatient (AMB) | payer OTHER, SELFPAY ==
--- NOTE | 2023-11-12 15:28 | MHC.OFFVIS ---
Intake Visit Reasons: EMB results Primary Mill Roller: Primary Mill Roller Present Allergies No Known Allergies [No Known Allergies*] Allergy (Verified 11/12/23 15:29) Is last menstrual period known: Yes HPI Comments Details: Patient is here for a follow up on her EMB results, she has a history of abnormal uterine bleeding. Currently control use is vasectomy. [facility] Medical History Left eye pain Heavy menses Pituitary adenoma Allergic rhinitis Xerostomia Vitamin D deficiency Anemia Dry mouth Dryness of eye Jaw clicking Surgical History No pertinent past surgical history Family History Father CVD (cardiovascular disease) Hypertension Mother Alive and well Maternal Aunt Breast cancer Social History Housing: House Alcohol intake: never Patient Tobacco Use Status: Never used Tobacco e-Cigarette/Vaping Use: Never Used Second Hand Smoke Exposure: No Current occupational status: employed Gender identity: Female Cognitive needs: No Hearing needs: No Vision needs: Yes Female Reproductive History Menstrual Age of Menarche: 11 Date of menopause: 09/08/23 Review of Systems Const All systems reviewed & are unremarkable except as noted in HPI and below Endo Reports no additional complaints Physical Exam Const General: cooperative, healthy appearing and no acute distress Psych Appearance: well kempt Attitude: cooperative Thought process: Normal thought process present Results Reviewed Results Reviewed: carrillo [id number] Name: Sandra Dale Age/Sex: 33/F Attending: Makayla Bryan CNM : 1990 Submitted by: Makayla Bryan CNM Copies to: Olamide Rodriguez MD MR #: [id number] Status: DEP REF Collected: 10/21/23 Location: .LAB Received: 10/21/23 Diagnosis Endometrium, biopsy: Inactive endometrium; negative for atypia or hyperplasia. Clinical History AUB Microscopic Description Microscopic sections reviewed. Material Received Endometrial biopsy Gross Description Received in formalin labeled ?EMB? is a 2.0 x 1.8 x 0.45 cm aggregate of multiple bañuelos-pink and red- maroon irregular tissue fragments, mucus and blood, submitted in toto in a cassette labeled A. CEDS Copies To Makayla Bryan CNM [facility] [address] [place] [address] Drive [address] [place] [address] Olamide Rodriguez MD [address] [place] [address] Dr[address] [place] [address] NOTE: Unless otherwise stated, all tissue is formalin-fixed and paraffin-embedded. Some or all of the immunohistochemical tests reported herein may have been developed and their performance characteristics determined by [facility]. They have not been cleared or approved by the U.S. Food and Drug Administration (FDA). However, the FDA has determined that such clearance or approval is not necessary. This laboratory is certified under the Clinical Laboratory Improvement Amendments of 1988 (CLIA) as qualified to perform high complexity clinical laboratory testing. Electronically Signed By: Jadon Moreno MD 10/22/23 1604 Patient: Sandra aDle Age/Sex: 33/F [id number] MR#: [id number] Page 1 of 1 Assessment & Plan Assessment & Plan (1) Endometrial thickening on ultrasound: Code(s): R93.89 - Abnormal findings on diagnostic imaging of other specified body structures Category: Medical (2) Abnormal uterine bleeding: Code(s): N93.9 - Abnormal uterine and vaginal bleeding, unspecified (3) Encounter to discuss test results: Code(s): Z71.2 - Person consulting for explanation of examination or test findings Plan Discussed: EMB results as noted are negative. Options for cycle control reviewed today including the Mirena IUD, and other methods. Mirena booklet dispensed along with a general control booklet. She is undecided today she will think about it after reviewing the literature and call the office for a follow up appointment as needed. If deciding to do an Mirena IUD advised preprocedure planning would involve having something to eat and drink and taking 3 ibuprofen or 2 Tylenol 1 hour before the insertion appointment. All of her questions and concerns were addressed to the best of my ability and shared decision making. She is agreeable to the plan of care. This note is constructed using voice recognition software. While every effort has been made to ensure accuracy, senior analyst programmer errors may have been included. Coding Level of Care Code Est Pt Level 3 (63861) Diagnoses Endometrial thickening on ultrasound R93.89 Abnormal uterine bleeding N93.9 Encounter to discuss test results Z71.2
== END 2023-11-12 16:29 | disposition home or self-care (01) ==
PROVIDERS: PCP Internal Medicine; Visit Provider Advanced Practice Midwife
DX: R93.89 Abnormal findings on diagnostic imaging of other specified body structures (principal); N93.9 Abnormal uterine and vaginal bleeding, unspecified; Z71.2 Person consulting for explanation of examination or test findings
CPT/HCPCS: 99213

== ENCOUNTER → 2023-11-12 15:24 | Outpatient (BNVA) | payer OTHER, SELFPAY | PROVIDERS: PCP Internal Medicine; Visit Provider Advanced Practice Midwife | DX: N93.9 Abnormal uterine and vaginal bleeding, unspecified (principal); R93.89 Abnormal findings on diagnostic imaging of other specified body structures; Z71.2 Person consulting for explanation of examination or test findings | CPT/HCPCS: 99212 ==